=== PATIENT | male | born 1950 | race Caucasian/White ===

== ENCOUNTER 2018-05-12 15:42 | Outpatient (REF) | payer OTHER, SELFPAY ==
--- NOTE | 2018-05-12 15:00 | SKI_PTH ---
PATIENT: Fernie Washington LOC: N U#:[id number] AGE/SX: 67/M ROOM: RE05/12/[address]: Robert Guerrero DO : 1950 BED: DIS: 05/12/2018 SPEC #: [id number] RECD: 05/13/18 11:27 STATUS: ANA REQ #: [id number] HEATHER: 05/12/18 15:[address]: Robert Guerrero DEPT: Surgical Specimen RECD BY: Najma Luna ENTERED: 05/13/18 11:27 SP TYPE: SHAGGY ALMEIDA DR: Erick Hayes Tissues: 1 - SKIN BIOPSY(SHAVE/PUNCH) Procedures: SKIN LEVEL 4 Comments: [id number]
== END 2018-05-12 16:02 ==
LOC: LBN 15:42
PROVIDERS: PCP Internal Medicine; Visit Provider Otolaryngology Otolaryngology/Facial Plastic Surgery
DX: L57.0 Actinic keratosis (principal)
CPT/HCPCS: 88305

== ENCOUNTER 2018-06-09 06:20 | Day surgery (SDC) | payer OTHER, SELFPAY ==
[2018-06-09 06:30] VITALS: BP 140/87; PULSE 62; RESP 16; TEMP 35.3; O2SAT 97
[2018-06-09] MEDS: Lactated Ringers 1,000 ML 80 ML IV (07:10)
[2018-06-09] MEDS: Oxymetazolone 0.05% SPRAY 15 ML BTL (07:50)
--- NOTE | 2018-06-09 08:03 | LIPBX_PTH ---
PATIENT: Fernie Washington LOC: [facility] U#:[id number] AGE/SX: 67/M ROOM: RE06/09/[address]: Robert Guerrero DO : 1950 BED: DIS: 06/09/2018 SPEC #: [id number] RECD: 06/09/18 11:51 STATUS: ANA REQ #: [id number] HEATHER: 06/09/18 08:[address]: Robert Guerrero DEPT: Surgical Specimen RECD BY: Najma Luna ENTERED: 06/09/18 11:52 SP TYPE: LIPBX OTHR DR: Erick Hayes Tissues: 1 - LIP BIOPSY/RESECTION 2 - FROZEN SECTION EXAM 3 - FROZEN SECTION- EXTRA SPECIMEN Procedures: GROSS AND MICRO LEVEL 4 FROZEN SECTION EXTRA FROZEN SECTION EXAM Comments: [id number]
[2018-06-09] MEDS: Silver Nitrate Stick 1 EACH ×2 (08:48)
[2018-06-09 09:29] VITALS: BP 123/78; PULSE 50; RESP 18; TEMP 36; O2SAT 97
--- NOTE | 2018-06-09 12:22 | ROE_ITS ---
DATE OF PROCEDURE: June 09, 2018 PREOPERATIVE DIAGNOSIS: Actinic keratosis left lower lip junction of the moist and dry lip line. POSTOPERATIVE DIAGNOSIS: Same. PROCEDURE: 1. Excision shave technique .7 cm 2. Frozen section analysis 3. Thermal ablation 1.4 cm left lower lip SURGEON: Robert Guerrero D.O. ANESTHESIA: MAC sedation and 3.5 cc's of 1.5% lidocaine with 1:100,000 epinephrine. COMPLICATIONS: None. CONDITION: The patient tolerated the procedure well. SPECIMENS: Frozen section analysis negative for actinic keratosis cleared at the base. INDICATIONS FOR PROCEDURE: This is a pleasant 67-year-old male that presents with a non-healing lesi on of the lip. In-office has proven shown actinic keratosis; we had numerous lengthy discussions pre operatively. We were prepared to perform full-thickness excision and reconstruction. We wanted to r emain conservative if appropriate for both cosmetic outcome and to avoid any in-depth reconstruction if needed. We discussed this in detail again the preoperative morning with the patient's and e patient. We had agreed to proceed with shave excision, which was going to be substantially deeper than what we performed in the office, in attempt to clear this without full-thickness excision and re construction. We discussed the plan; they were in agreement. Consent was placed in the chart. PROCEDURE: The patient was brought back to the operating suite in stable condition, placed supine on the operating table and given IV sedation. 3.5 cc's of 1.5% lidocaine with 1:100,000 epinephrine wa s injected into the left lower lip. A derma blade was used to perform a .7 cm shave excision of the prior biopsy site with surrounding tissue associated. Colored sutures were placed for pathological a nalysis. This was sent for frozen section analysis. There was no evidence of actinic keratosis and the deep margin was cleared. We then proceed with thermal ablation of 1.4 cm of the left lower lip. I was happy that we were able to err on the side of conservative management. I updated the patient' s ; she was very glad of the news as well. The patient was stable to PACU.
== END 2018-06-09 09:58 | disposition home or self-care (01) ==
PROVIDERS: PCP Internal Medicine; Visit Provider Otolaryngology Otolaryngology/Facial Plastic Surgery
PROC: (CPT 11311; principal; 2018-06-09 07:30)
DX: L57.0 Actinic keratosis (principal)
CPT/HCPCS: 11311; 17000; 88305; 88331; 88332; J0690; J1885; J2250; J2405; J3010

== ENCOUNTER 2018-09-27 17:35 | Emergency (ER) | payer OTHER, SELFPAY ==
[2018-09-27 17:38] VITALS: BP 160/111; PULSE 82; RESP 14; TEMP 36.6; O2SAT 99
--- NOTE | 2018-09-27 18:07 | DI.CT_ITS ---
SYMPTOM/DIAGNOSIS: ABD PAIN ABDOMEN AND PELVIC CT: There are no prior comparison exams. Images were performed from the lung bases through the ischial tuberosities after IV and without benefit of oral contrast. The lung bases show mild dependent changes. There is a large hemangioma measuring 7.7 cm. at the dome of the liver. A few scattered liver cysts are also seen. The gallbladder is unremarkable. There is no biliary dilatation. The spleen, pancreas, adrenals and kidneys are unremarkable. The prostate is mildly enlarged and shows a central calcification. The bladder is unremarkable. The appendix appears normal. There is a moderate quantity of stool. No bowel dilatation or inflammatory changes are seen. No mass or adenopathy is identified. IMPRESSION: Large liver hemangioma. No acute abnormality is seen in the abdomen or pelvis.
--- NOTE | 2018-09-27 18:27 | W.ED.GENAD ---
Discharge Plan Disposition Patient Disposition: HOME Condition: Stable Discharge Details Chief Complaint: Abd Prob Clinical Impression: Abdominal pain, Constipation Primary Care Provider: Erick Hayes ED Provider: Karlie Martinez Home Meds and New Rx's Prescriptions: Continued Prilosec 10 MG susp,delayed release for recon 20 mg PO 3x week RF: 0 testosterone cypionate 200 mg/mL Kit 200 mg IM Q2W RF: 0 Discharge Instructions Instructions: Constipation (ED), Abdominal Pain (ED) Additional Instructions: Please return immediately to the emergency department if you develop any new or worsening symptoms or if you become otherwise concerned. It is extremely important that you see Dr. Hayes on Saturday as scheduled. It was a pleasure participating in your care today. Referrals: Erick Hayes MD [Primary Care Provider] - Discharge Data Discharge Date/Time-TO BE ENTERED AT DEPARTURE: 09/27/18 20:35 Medical Decision Making Fernie Washington is a 67-year-old man with history of GERD presenting to the emergency department with several weeks of worsening left lower quadrant pain and decreased frequency of bowel movements. On exam patient is very well and nontoxic appearing. Mild tenderness palpation of the left lower quadrant, no peritoneal signs. Concern for diverticulitis versus ileus/partial bowel obstruction versus other. Exam/history is not consistent with testicular etiology, acute aortic pathology, sepsis, ureteral stone. Plan for screening labs, CT abdomen pelvis, IV fluid hydration. Patient declines pain medication at this time. Will monitor and reassess. CT shows liver hemangioma, no acute process. Labs nondiagnostic. I discussed imaging lab results with the patient, including incidental findings. I suspect his symptoms are secondary to constipation, although I did recommend outpatient colonoscopy if symptoms persist. I had a lengthy discussion with the patient regarding home care, return to emergency department cautions, and importance of outpatient follow-up. Patient verbalized understanding the plan and is amenable. Medical Records Medical records reviewed: Yes I reviewed the patient's medical records. Imaging Data Radiologic Study: Attestation: I personally reviewed and interpreted this imaging study as follows: Radiologist's impression: ABDOMEN AND PELVIC CT: There are no prior comparison exams. Images were performed from the lung bases through the ischial tuberosities after IV and without benefit of oral contrast. The lung bases show mild dependent changes. There is a large hemangioma measuring 7.7 cm. at the dome of the liver. A few scattered liver cysts are also seen. The gallbladder is unremarkable. There is no biliary dilatation. The spleen, pancreas, adrenals and kidneys are unremarkable. The prostate is mildly enlarged and shows a central calcification. The bladder is unremarkable. The appendix appears normal. There is a moderate quantity of stool. No bowel dilatation or inflammatory changes are seen. No mass or adenopathy is identified. IMPRESSION: Large liver hemangioma. No acute abnormality is seen in the abdomen or pelvis. Lab Data Lab results reviewed: Yes I reviewed the patient's lab results. Laboratory Tests Range/Units 09/27/18 09/27/18 09/27/18 18:20 18:29 18:29 WBC (4.4-10.8) k/cumm 4.33 L RBC (4.50-6.00) m/cumm 5.28 Hgb (13.5-17.5) g/dL 16.2 Hct (40.0-50.0) % 47.4 MCV (80-95) fL 89.8 MCH (27.0-33.0) pg 30.7 MCHC (32.0-36.0) g/dL 34.2 RDW (11.8-14.1) % 12.8 Plt Count (130-400) x1000/uL 167 MPV (8.0-11.0) fL 10.1 Immature Gran % 0.0 Neutrophils % 54.8 Lymphocytes % 33.7 Monocytes % 9.9 Eosinophils % 1.4 Basophils % 0.2 Absolute Neutrophils (1.2-6.7) k/cumm 2.37 Absolute Lymphocytes (1.2-3.4) k/cumm 1.46 Absolute Monocytes (0.11-0.7) k/cumm 0.43 Absolute Eosinophils (0.0-0.7) k/cumm 0.06 Absolute Basophils (0.0-0.2) k/cumm 0.01 Sodium (136-145) mmol/L 142 Potassium (3.5-5.1) mmol/L 4.3 Chloride (98-107) mmol/L 103 Carbon Dioxide (21.0-32.0) mmol/L 32.8 H Anion Gap (3-11) mmol/L 6.2 BUN (7-18) mg/dL 17 Creatinine (0.70-1.30) mg/dL 1.14 Estimated GFR/1.73 m2 (mL/min/1.73m2) >= 60.00 Glucose (70-100) mg/dL 103 H Calcium (8.5-10.1) mg/dL 9.3 Total Bilirubin (0.2-1.0) mg/dL 0.6 AST (15-37) U/L 36 ALT (12-78) U/L 41 Alkaline Phosphatase (46-116) U/L 73 Total Protein (6.4-8.2) g/dL 7.6 Albumin (3.4-5.0) g/dL 4.1 Lipase (73-393) U/L 230 Urine Color (Yellow) Yellow Urine Clarity Clear Urine pH (5-8) 5.5 Ur Specific [place] (1.005-1.025) >= 1.030 H Urine Protein (Negative) mg/dL Negative Urine Ketones (Negative) mg/dL Trace H Urine Blood (Negative) Trace-intact H Urine Nitrite (Negative) Negative Urine Bilirubin (Negative) Small H Urine Urobilinogen (Up TO 0.2) EU/dL 0.2 Ur Leukocyte Esterase (Negative) Negative Urine RBC (0-2) 3-5 H Urine WBC (0-5) HPF Negative Ur Epithelial Cells (Negative) HPF Rare Urine Crystals (Negative) HPF Rare calcium oxalate Urine Bacteria (Negative) HPF Few Urine Casts (Negative) LPF Negative Urine Mucus (Negative) Negative Urine Other (Negative) Negative Ur Culture Indicated? No Urine Glucose (Negative) mg/dL Negative HPI General Mode of arrival: ambulatory. Date/Time Provider Initiated Documentation: 09/27/18 17:39. Limitations to Documentation: no limitations. Information obtained by: patient, family, RN notes reviewed and old records reviewed. HPI Narrative: Fernie Washington is a 67-year-old man with a history of GERD presenting to the emergency department with abdominal pain, change in bowel movements. Patient reports that approximately 2 months ago he was exposed to mouse feces. Approximately 1 month ago he developed watery diarrhea, and was concerned that he might have Giardia for which he took 1 week of antibiotics. Patient reports that diarrhea resolved, and then approximately 1 week later he developed left lower quadrant pain and decreased frequency of bowel movements and decreased ability to pass gas. Patient reports that he typically has very regular bowel movements, 2-3/day. He began having a decrease in frequency of bowel movements, left lower quadrant cramping abdominal pain that was somewhat resolved with passing gas or bowel movements. He took Bactrim and Flagyl for 1 week for this, with last dose of these medications being yesterday. Reports that he has had worsening of symptoms since taking these medications. He denies any other pain, fevers, vomiting, rash, shortness of breath, cough. He reports that he thinks he has had somewhat decreased p.o. intake, secondary to understanding that his frequency of bowel movements has decreased, but he has not had decreased appetite or nausea. No recent travel. No other recent illness. Has not had a history of similar symptoms in the past. Last colonoscopy 12 years ago. Had exploratory laparotomy during childhood. Related Data Home Medications Medication Instructions Recorded Confirmed Prilosec 20 mg PO 3x week packet 04/30/17 09/27/18 testosterone cypionate 200 mg IM Q2W 06/03/18 09/27/18 Allergies Allergy/AdvReac Type Severity Reaction Status Date / Time clindamycin AdvReac GI Bleeding Unverified 09/27/18 18:38 General Stated Complaint: Abd Prob CECELIA: 3 Review of Systems Review of Systems Constitutional: denies fevers Eyes: denies eye pain ENT: denies facial pain, dental pain, sore throat Cardiovascular: denies chest pain Respiratory: denies SOB, cough GI: reports abdominal pain, constipation, diarrhea now resolved, denies vomiting : denies flank pain MSK: denies back pain, neck pain, arthralgias, myalgias Skin: denies rash Neuro: denies headaches, numbness, weakness [facility] Social History Smoking/Tobacco Use Status: Never Exam Narrative Exam Narrative: Constitutional: well and [id number], pleasant, conversing normally HENT: head atraumatic, normocephalic normal inspection, mucous membranes moist Eyes: conjunctiva normal, sclera normal, pupils 3mm b/l Neck: no stridor, normal ROM, trachea midline Chest: normal inspection Resp: normal work of breathing, LCTAB Cardio: normal rate, normal rhythm, no murmur appreciated GI: abdomen soft, mild TTP mid lower abdominal and left lower quadrant, no rebound or guarding, negative McBurney's point tenderness, non-distended Back: normal inspection, no rash Skin: warm, dry, normal color, no rash Neuro: alert, not altered, grossly non-focal, normal tone Ext: no edema Psych: normal mood, normal affect, normal behavior Course Vital Signs Temperature 36.6 C 09/27/18 17:38 Pulse 82 09/27/18 17:38 Respiratory Rate 14 09/27/18 17:38 Blood Pressure 160/111 H 09/27/18 17:38 Pulse Oximetry 99 09/27/18 17:38 Temperature 36.6 C 09/27/18 17:38 Temperature Source Temporal Artery Scan 09/27/18 17:38 Pulse 82 09/27/18 17:38 Respiratory Rate 14 09/27/18 17:38 Respiratory Effort Non-Labored 09/27/18 17:41 Blood Pressure 160/111 H 09/27/18 17:38 Pulse Oximetry 99 09/27/18 17:38 Oxygen Delivery Method Room Air 09/27/18 17:38 Oxygen Flow Rate 0 09/27/18 17:38 Pain Level 2 09/27/18 17:38
[2018-09-27 18:34] LABS: Bilirubin Small (Negative); Blood Trace-intact (Negative); Clarity Clear; Glucose Negative (Negative); Ketones Trace mg/dL (Negative); Leukocyte Esterase Negative (Negative); Nitrite Negative (Negative); Specific Gravity >= 1.030 (1.005-1.025); Urobilinogen 0.2 EU/dL (Up TO 0.2); pH 5.5 (5-8)
[2018-09-27] MEDS: Normal Saline 1,000 ML 1000 ML IV (18:35)
--- NOTE | 2018-09-27 18:35 | ED.GENADUL_ITS ---
Discharge Plan Disposition Patient Disposition: HOME Condition: Stable Discharge Details Chief Complaint: Abd Prob Clinical Impression: Abdominal pain, Constipation Primary Care Provider: Erick Hayes ED Provider: Karlie Martinez Home Meds and New Rx's Prescriptions: Continued Prilosec 10 MG susp,delayed release for recon 20 mg PO 3x week RF: 0 testosterone cypionate 200 mg/mL Kit 200 mg IM Q2W RF: 0 Discharge Instructions Instructions: Constipation (ED), Abdominal Pain (ED) Additional Instructions: Please return immediately to the emergency department if you develop any new or worsening symptoms or if you become otherwise concerned. It is extremely important that you see Dr. Hayes on Saturday as scheduled. It was a pleasure participating in your care today. Referrals: Erick Hayes MD [Primary Care Provider] - Discharge Data Discharge Date/Time-TO BE ENTERED AT DEPARTURE: 09/27/18 20:35 Medical Decision Making Fernie Washington is a 67-year-old man with history of GERD presenting to the emergency department with several weeks of worsening left lower quadrant pain and decreased frequency of bowel movements. On exam patient is very well and nontoxic appearing. Mild tenderness palpation of the left lower quadrant, no peritoneal signs. Concern for diverticulitis versus ileus/partial bowel obstruction versus other. Exam/history is not consistent with testicular etiology, acute aortic pathology, sepsis, ureteral stone. Plan for screening labs, CT abdomen pelvis, IV fluid hydration. Patient declines pain medication at this time. Will monitor and reassess. CT shows liver hemangioma, no acute process. Labs nondiagnostic. I discussed imaging lab results with the patient, including incidental findings. I suspect his symptoms are secondary to constipation, although I did recommend outpatient colonoscopy if symptoms persist. I had a lengthy discussion with the patient regarding home care, return to emergency department cautions, and importance of outpatient follow-up. Patient verbalized understanding the plan and is am enable. Medical Records Medical records reviewed: Yes I reviewed the patient's medical records. Imaging Data Radiologic Study: Attestation: I personally reviewed and interpreted this imaging study as follows: Radiologist's impression: ABDOMEN AND PELVIC CT: There are no prior comparison exams. Images were performed from the lung bases through the ischial tuberosities after IV and without benefit of oral contrast. The lung bases show mild dependent changes. There is a large hemangioma measuring 7.7 cm. at the dome of the liver. A few scattered liver cysts are also seen. The gallbladder is unremarkable. There is no biliary dilatation. The spleen, pancreas, adrenals and kidneys are unremarkable. The prostate is mildly enlarged and shows a central calcification. The bladder is unremarkable. The appendix appears normal. There is a moderate quantity of stool. No bowel dilatation or inflammatory changes are seen. No mass or adenopathy is identified. IMPRESSION: Large liver hemangioma. No acute abnormality is seen in the abdomen or pelvis. Lab Data Lab results reviewed: Yes I reviewed the patient's lab results. Laboratory Tests Range/Units 09/27/18 09/27/18 09/27/18 18:20 18:29 18:29 WBC (4.4-10.8) k/cumm 4.33 L RBC (4.50-6.00) m/cumm 5.28 Hgb (13.5-17.5) g/dL 16.2 Hct (40.0-50.0) % 47.4 MCV (80-95) fL 89.8 MCH (27.0-33.0) pg 30.7 MCHC (32.0-36.0) g/dL 34.2 RDW (11.8-14.1) % 12.8 Plt Count (130-400) x1000/uL 167 MPV (8.0-11.0) fL 10.1 Immature Gran % 0.0 Neutrophils % 54.8 Lymphocytes % 33.7 Monocytes % 9.9 Eosinophils % 1.4 Basophils % 0.2 Absolute Neutrophils (1.2-6.7) k/cumm 2.37 Absolute Lymphocytes (1.2-3.4) k/cumm 1.46 Absolute Monocytes (0.11-0.7) k/cumm 0.43 Absolute Eosinophils (0.0-0.7) k/cumm 0.06 Absolute Basophils (0.0-0.2) k/cumm 0.01 Sodium (136-145) mmol/L 142 Potassium (3.5-5.1) mmol/L 4.3 Chloride (98-107) mmol/L 103 Carbon Dioxide (21.0-32.0) mmol/L 32.8 H Anion Gap (3-11) mmol/L 6.2 BUN (7-18) mg/dL 17 Creatinine (0.70-1.30) mg/dL 1.14 Estimated GFR/1.73 m2 (mL/min/1.73m2) >= 60.00 Glucose (70-100) mg/dL 103 H Calcium (8.5-10.1) mg/dL 9.3 Total Bilirubin (0.2-1.0) mg/dL 0.6 AST (15-37) U/L 36 ALT (12-78) U/L 41 Alkaline Phosphatase (46-116) U/L 73 Total Protein (6.4-8.2) g/dL 7.6 Albumin (3.4-5.0) g/dL 4.1 Lipase (73-393) U/L 230 Urine Color (Yellow) Yellow Urine Clarity Clear Urine pH (5-8) 5.5 Ur Specific [place] (1.005-1.025) >= 1.030 H Urine Protein (Negative) mg/dL Negative Urine Ketones (Negative) mg/dL Trace H Urine Blood (Negative) Trace-intact H Urine Nitrite (Negative) Negative Urine Bilirubin (Negative) Small H Urine Urobilinogen (Up TO 0.2) EU/dL 0.2 Ur Leukocyte Esterase (Negative) Negative Urine RBC (0-2) 3-5 H Urine WBC (0-5) HPF Negative Ur Epithelial Cells (Negative) HPF Rare Urine Crystals (Negative) HPF Rare calcium oxalate Urine Bacteria (Negative) HPF Few Urine Casts (Negative) LPF Negative Urine Mucus (Negative) Negative Urine Other (Negative) Negative Ur Culture Indicated? No Urine Glucose (Negative) mg/dL Negative HPI General Mode of arrival: ambulatory . Date/Time Provider Initiated Documentation: 09/27/18 17:39 . Limitations to Documentation: no limitations . Information obtained by: patient, family, RN notes reviewed and old records reviewed . HPI Narrative: Fernie Washington is a 67-year-old man with a history of GERD presenting to the emergency department with abdominal pain, change in bowel movements. Patient reports that approximately 2 months ago he was exposed to mouse feces. Approximately 1 month ago he developed watery diarrhea, and was concerned that he might have Giardia for which he took 1 week of antibiotics. Patient reports that diarrhea resolved, and then approximately 1 week later he developed left lower quadrant pain and decreased frequency of bowel movements and decreased ability to pass gas. Patient reports that he typically has very regular bowel movements, 2-3/day. He began having a decrease in frequency of bowel movements, left lower quadrant cramping abdominal pain that was somewhat resolved with passing gas or bowel movements. He took Bactrim and Flagyl for 1 week for this, with last dose of these medications being yesterday. Reports that he has had worsening of symptoms since taking these medications. He denies any other pain, fevers, vomiting, rash, shortness of breath, cough. He reports that he thinks he has had somewhat decreased p.o. intake, secondary to understanding that his frequency of bowel movements has decreased, but he has not had decreased appetite or nausea. No recent travel. No other recent illness. Has not had a history of similar symptoms in the past. Last colonoscopy 12 years ago. Had exploratory laparotomy during childhood. Related Data Home Medications Medication Instructions Recorded Confirmed Prilosec 20 mg PO 3x week packet 04/30/17 09/27/18 testosterone cypionate 200 mg IM Q2W 06/03/18 09/27/18 Allergies Allergy/AdvReac Type Severity Reaction Status Date / Time clindamycin AdvReac GI Bleeding Unverified 09/27/18 18:38 General Stated Complaint: Abd Prob CECELIA: 3 Review of Systems Review of Systems Constitutional: denies fevers Eyes: denies eye pain ENT: denies facial pain, dental pain, sore throat Cardiovascular: denies chest pain Respiratory: denies SOB, cough GI: reports abdominal pain, constipation, diarrhea now resolved, denies vomiting : denies flank pain MSK: denies back pain, neck pain, arthralgias, myalgias Skin: denies rash Neuro: denies headaches, numbness, weakness [facility] Social History Smoking/Tobacco Use Status: Never Exam Narrative Exam Narrative: Constitutional: well and [id number], pleasant, conversing normally HENT: head atraumatic, normocephalic normal inspection, mucous membranes moist Eyes: conjunctiva normal, sclera normal, pupils 3mm b/l Neck: no stridor, normal ROM, trachea midline Chest: normal inspection Resp: normal work of breathing, LCTAB Cardio: normal rate, normal rhythm, no murmur appreciated GI: abdomen soft, mild TTP mid lower abdominal and left lower quadrant, no rebound or guarding, negative McBurney's point tenderness, non-distended Back: normal inspection, no rash Skin: warm, dry, normal color, no rash Neuro: alert, not altered, grossly non-focal, normal tone Ext: no edema Psych: normal mood, normal affect, normal behavior Course Vital Signs Temperature 36.6 C 09/27/18 17:38 Pulse 82 09/27/18 17:38 Respiratory Rate 14 09/27/18 17:38 Blood Pressure 160/111 H 09/27/18 17:38 Pulse Oximetry 99 09/27/18 17:38 Temperature 36.6 C 09/27/18 17:38 Temperature Source Temporal Artery Scan 09/27/18 17:38 Pulse 82 09/27/18 17:38 Respiratory Rate 14 09/27/18 17:38 Respiratory Effort Non-Labored 09/27/18 17:41 Blood Pressure 160/111 H 09/27/18 17:38 Pulse Oximetry 99 09/27/18 17:38 Oxygen Delivery Method Room Air 09/27/18 17:38 Oxygen Flow Rate 0 09/27/18 17:38 Pain Level 2 09/27/18 17:38
[2018-09-27 18:39] LABS: Absolute Basophil Count 0.01 k/cumm (0.0-0.2); Absolute Eosinophil Count 0.06 k/cumm (0.0-0.7); Absolute Lymphocyte Count 1.46 k/cumm (1.2-3.4); Absolute Monocyte Count 0.43 k/cumm (0.11-0.7); Absolute Neutrophil Count 2.37 k/cumm (1.2-6.7); Basophils % 0.2; Eosinophils % 1.4; HCT 47.4 % (40.0-50.0); HGB 16.2 g/dL (13.5-17.5); Lymphocytes % 33.7; Mean Corp. HGB Concentration 34.2 g/dL (32.0-36.0); Mean Corpuscular Hemoglobin 30.7 pg (27.0-33.0); Mean Corpuscular Volume 89.8 fL (80-95); Mean Platelet Volume 10.1 fL (8.0-11.0); Monocytes % 9.9; Neutrophils % 54.8; Platelet Count 167 x1000/uL (130-400); RBC 5.28 m/cumm (4.50-6.00); RBC Distribution Width 12.8 % (11.8-14.1); White Blood Cell Count 4.33 k/cumm (4.4-10.8)
[2018-09-27 18:43] LABS: Epithelial Cells Rare HPF (Negative); WBC Negative HPF (0-5)
[2018-09-27 18:44] LABS: Bacteria Few HPF (Negative); C & S Indicated? No; Casts Negative LPF (Negative); Crystals Rare Calcium Oxalate HPF (Negative); Mucus Negative (Negative); Other Cells Negative (Negative)
[2018-09-27 18:50] LABS: ALT 41 U/L (12-78); AST 36 U/L (15-37); Albumin 4.1 g/dL (3.4-5.0); Alkaline Phosphatase 73 U/L (46-116); Anion Gap 6.2 mmol/L (3-11); BUN 17 mg/dL (7-18); Bilirubin, Total 0.6 mg/dL (0.2-1.0); CO2 32.8 mmol/L (21.0-32.0); CREATININE 1.14 mg/dL (0.70-1.30); Calcium 9.3 mg/dL (8.5-10.1); Chloride 103 mmol/L (98-107); Glucose 103 mg/dL (70-100); Lipase 230 U/L (73-393); Potassium 4.3 mmol/L (3.5-5.1); Sodium 142 mmol/L (136-145); Total Protein 7.6 g/dL (6.4-8.2)
[2018-09-27] MEDS: Omnipaque 350 MG/ML 100 ML BTL IJ (19:14)
--- NOTE | 2018-09-27 19:52 | DI.VRAD_ITS ---
EXAM: CT Abdomen and Pelvis With Contrast EXAM DATE/TIME: 09/27/2018 6:08 PM CLINICAL HISTORY: 67 years old, male; Pain; Abdominal pain; Generalized TECHNIQUE: Axial computed tomography images of the abdomen and pelvis with intravenous contrast. Coronal and sagittal reformatted images were created and reviewed. COMPARISON: No relevant prior studies available. FINDINGS: Lower thorax: Bibasilar dependent atelectasis. ABDOMEN: Liver: Large hemangioma in the right lobe of the liver measuring 7.7 m. Multiple small probable hepatic cysts. Gallbladder and bile ducts: Normal. No calcified stones. No ductal dilation. Pancreas: Normal. No ductal dilation. Spleen: Normal. No splenomegaly. Adrenals: Normal. No mass. Kidneys and ureters: Normal. No hydronephrosis. Stomach and bowel: Normal. No obstruction. No mucosal thickening. Appendix: Normal appendix. PELVIS: Bladder: Unremarkable as visualized. Reproductive: Unremarkable as visualized. ABDOMEN and PELVIS: Intraperitoneal space: Normal. No free air. No significant fluid collection. Bones/joints: No acute fracture. No dislocation. Soft tissues: Unremarkable. Vasculature: Normal. No abdominal aortic aneurysm. Lymph nodes: Normal. No enlarged lymph nodes. IMPRESSION: No acute findings. Dictated and Authenticated by: Skip Alvarez MD. Ordering:AARON Ziegler MD
== END 2018-09-27 20:35 | disposition home or self-care (01) ==
PROVIDERS: Emergency Provider Student in an Organized Health Care Education/Training Program; PCP Internal Medicine
DX: R10.32 Left lower quadrant pain (principal); K59.00 Constipation, unspecified
CPT/HCPCS: 36415; 80053; 83690; 96360; 96361; 99285; 74177; 81003; 81015; 85025; 99284; J3490

== ENCOUNTER 2018-10-16 08:54 | Outpatient (REF) | payer OTHER, SELFPAY | END 2018-10-16 09:14 | LOC: NCHCN 08:54 | PROVIDERS: PCP Internal Medicine; Referring Provider Internal Medicine; Visit Provider General Practice | DX: R19.7 Diarrhea, unspecified (principal) | CPT/HCPCS: 87329; 87177 ==

== ENCOUNTER 2018-10-20 13:37 | Outpatient (CLI) | payer OTHER, SELFPAY ==
[2018-10-22 12:25] LABS: Tissue Transglutaminase Ab IgA <1.2 U/mL; Tissue Transglutaminase Ab IgG <1.2 U/mL
== END 2018-10-20 13:57 ==
PROVIDERS: PCP Internal Medicine; Visit Provider General Practice
DX: R19.7 Diarrhea, unspecified (principal)
CPT/HCPCS: 36415; 83516

== ENCOUNTER 2018-12-02 20:31 | Outpatient (REF) | payer OTHER, SELFPAY | END 2018-12-02 20:51 | LOC: NCHCN 20:31 | PROVIDERS: PCP Internal Medicine; Visit Provider Internal Medicine | DX: R19.7 Diarrhea, unspecified (principal) | CPT/HCPCS: 87329; 82710; 83630; 87177; 87324 ==

== ENCOUNTER 2018-12-04 12:24 | Outpatient (REF) | payer OTHER, SELFPAY ==
[2018-12-05 10:38] LABS: Campylobacter PCR SEE COMMENTS; Salmonella PCR SEE COMMENTS; Shiga Toxin PCR SEE COMMENTS; Shigella/Enteroinvasive Ecoli SEE COMMENTS
== END 2018-12-04 12:44 ==
LOC: NCHCO 12:24
PROVIDERS: PCP Internal Medicine; Referring Provider General Practice; Visit Provider Internal Medicine
DX: R19.7 Diarrhea, unspecified (principal)
CPT/HCPCS: 87505

== ENCOUNTER 2019-01-20 06:12 | Day surgery (SDC) | payer OTHER, SELFPAY ==
--- NOTE | 2019-01-20 06:26 | W.COLOREPORT ---
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 He also is due for a screening colonoscopy. Risks, benefits and complications have been reviewed. Complications include but are not limited to bleeding, pain, perforation, missed small lesion/polyp, sore throat, aspiration and adverse reaction to the medications. Questions were entertained and answered to their satisfaction and they wished to proceed. No guarantees were given or implied. Prep: Miralax/Dulcolax Procedure Start Time: :28 Procedure End Time: 08:37 Retraction Time: 39 minutes Findings: Normal appearing colon and terminal ileum. One pedunculated polyp and 4 sessile polyps Procedure Description: After informed consent was obtained the patient was taken to the procedure room and placed in a left decubitous position. Monitors were applied and a time out was done. The patients name, date of , procedure, allergies to medications and metal in their body was reviewed. The patient was then sedated. Once sedated and comfortable a rectal exam was done. External exam was normal. Internal exam revealed a normal sphincter tone and no palpable masses. The prostate felt smooth. The scope was then introduced and retro-flexed. No internal hemorrhoids were identified. There were no polyps or masses noted. The scope was then advanced to the cecum with some difficulty due to a very floppy and tortuous colon. The TI and appendiceal orifice were identified. The prep was adequate. There was liquid stool throughout but I was able to suction it out. The scope was then slowly retracted over 39 minutes back into the rectum. Polyps were removed with cold forceps in the descending, transverse and sigmoid colon. Random bx were done in the terminal ileum, ascending, transverse, descending, sigmoid and rectum to rule out microscopic colitis. The scope was removed and the patient was woken up and taken back to Same day surgery in stable condition. The patient tolerated the procedure well and there were no immediate complications. Follow up: The patient should follow up in 3-5 years unless they develop changes in bowel habits or other new gastrointestinal complaints.
--- NOTE | 2019-01-20 06:28 | W.PM.DSUDISC ---
Discharge Plan Disposition Patient Disposition: HOME Condition: Good Discharge Details Reason For Visit: Colonoscopy Attending Provider: Gloria Rees Primary Care Provider: Erick Hayes Home Meds and New Rx's Prescriptions: Continued Prilosec 10 MG susp,delayed release for recon 20 mg PO 3x week RF: 0 testosterone cypionate 200 mg/mL Kit 200 mg IM Q2W RF: 0 Discontinued polyethylene glycol 3350 [Miralax] 17 gram Powder In Packet RF: 0 bisacodyl [Dulcolax (bisacodyl)] 5 mg Tablet,Delayed Release (Dr/Ec) RF: 0 Discharge Instructions Instructions: Colonoscopy (DC), Colorectal Polyps (DC) Additional Instructions: Findings: 5 polyps otherwise normal appearing colon and terminal ileum Follow up: 3-5 years Please call if you develop: fevers >101.5 Nausea or Vomiting Abdominal pain that is not transient DAY SURGERY UNIT POST COLONOSCOPY INSTRUCTIONS 1. Because there will be medication in your system for the next 24 hours, you may feel a little sleepy. Your coordination will be affected. Therefore: a. Do not drive or operate dangerous equipment for 24 hours. b. Do not drink alcohol beverages for 24 hours (not even beer). c. Plan to go home and rest for the day. 2. Generally there are no restrictions on your activity after a day or so has gone by, but you may feel a bit fatigued for a few days. 3 After you arrive home you may have a light meal and return to a normal diet as you can tolerate it without feeling sick to your stomach. 4. After surgery, you may feel pain or discomfort. This should be only transient, but if it persists please contact your doctor. 5. If there are any questions regarding the findings of your procedure, please feel free to contact your doctor. 6. If you are unable to contact your doctor with a problem, contact the hospital at [phone]. 7. Continue all your regular medications unless directed otherwise. I understand the above instructions and have no questions. Signature of Patient or Responsible Adult Escort Date/Time Name of Responsible Adult Escort Signature of Nurse Date/Time Activity:: Activity as Tolerated Diet:: As Tolerated Discharge Orders Discharge Orders: Discharge Order (Routine); Ordered 01/20/19 Ordered By: Gloria Rees DS: Diagnosis Discharge Diagnosis (1) S/P colonoscopy: Status: Acute (2) Colorectal polyps: Status: Acute
--- NOTE | 2019-01-20 06:29 | W.PM.HP.N ---
Date of service: 01/20/19 Time of Service: 06:29 Assessment and Plan (1) Encounter for colorectal cancer screening: Current visit: Yes Status: Acute A\\ Due for screening colonoscopy. Last colonoscopy was 12 years ago and was normal P\\ Colonoscopy under sedation Risks, benefits and complications have been reviewed. Complications include but are not limited to bleeding, perforation, pain, missed lesion or polyp, sore throat, aspiration, and adverse reaction to the medications. Questions were entertained and answered to the patient's satisfaction and they wish to proceed. No guarantees were given or implied. (2) Chronic diarrhea: Current visit: Yes Status: Acute A\\ I suspect that he has a mild colitis post viral gastroenteritis. P\\ I recommended random biopsies of the large bowel if the colon is otherwise normal. Dr. Washington would rather not have the biopsies done. We discussed that I would not treat him with prednisone or entocort unless I had biopsy proven Colitis. 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 He though he had developed Giardia and took a course of Flagyl without effect. He then thought that maybe he had diverticulitis and took a 7 day course of antibiotics for that without improvment in his symptoms. He then developed constipation and was seen in the ER. CT scan was unremarkable for any GI pathology. They did find an 8 cm hemangioma in his liver. He now has looses stools, some lower abdom inal pain and his weight has stabilized. Some of the pain resolves after having a BM. The pain is not bad enough to cause him to have to take anything for it. He eats a predominantly vegan diet. He doesn't smoke or drink. He has no family history of IBD or Colon Cancer. he has no Cardiac history. His last Colonoscopy was [address] Ahsan Valadez and it was normal. There have been no changes in his health since I saw him in the office. [facility] Medical History GERD (gastroesophageal reflux disease) (Chronic) Hypogonadism in male (Chronic) H/O actinic keratosis (Resolved) Sensorineural hearing loss of both ears (Chronic) Surgical History S/P colonoscopy (Acute ~01/20/19) H/O local excision of skin lesion (Acute) Social History Smoking/Tobacco Use Status: Never Alcohol Intake: never Drug use: Never Do you feel safe in your relationship?: Yes Meds Home Medications Medication Instructions Recorded Confirmed Type Prilosec 20 mg PO 3x week packet 04/30/17 12/19/18 History testosterone cypionate 200 mg IM Q2W 06/03/18 12/19/18 History Allergies Allergy/AdvReac Type Severity Reaction Status Date / Time clindamycin AdvReac C.Diff Unverified 01/20/19 06:26 Exam Resp Effort & Inspection: normal respiratory effort Auscultation: clear to auscultation bilaterally Cardio Rate: regular rate Rhythm: regular rhythm
[2019-01-20 06:36] VITALS: BP 148/90; PULSE 55; RESP 14; TEMP 35; O2SAT 99
[2019-01-20] MEDS: Lactated Ringers 1,000 ML 80 ML IV (06:39)
--- NOTE | 2019-01-20 07:34 | BOWEL_PTH ---
PATIENT: Fernie Washington LOC: [facility] U#:[id number] AGE/SX: 68/M ROOM: RE01/20/[address]: Gloria Rees MD : 1950 BED: DIS: 01/20/2019 SPEC #: [id number] RECD: 01/20/19 12:48 STATUS: ANA RE #: [id number] HEATHER: 01/20/19 07:[address]: Gloria Rees DEPT: Surgical Specimen RECD BY: Najma Luna ENTERED: 01/20/19 12:51 SP TYPE: Bowel OTHR DR: Erick Hayes Tissues: 1 - BIOPSY BOWEL 2 - BIOPSY BOWEL 3 - BIOPSY BOWEL 4 - BIOPSY BOWEL 5 - BIOPSY BOWEL 6 - BIOPSY BOWEL 7 - BIOPSY BOWEL 8 - BIOPSY BOWEL 9 - BIOPSY BOWEL 10 - BIOPSY BOWEL Procedures: GROSS AND MICRO LEVEL 4 Comments: [id number]
[2019-01-20 09:14] VITALS: BP 116/75; PULSE 47; RESP 14; TEMP 36.3; O2SAT 97
== END 2019-01-20 10:55 | disposition home or self-care (01) ==
PROVIDERS: PCP Internal Medicine; Visit Provider Surgery
PROC: 0DJD8ZZ Inspection of Lower Intestinal Tract, Via Natural or Artificial Opening Endoscopic (ICD-10-PCS; CPT 45378; principal; 2019-01-20 07:30)
DX: Z12.11 Encounter for screening for malignant neoplasm of colon (principal); D12.4 Benign neoplasm of descending colon; D12.5 Benign neoplasm of sigmoid colon; D12.3 Benign neoplasm of transverse colon; K52.9 Noninfective gastroenteritis and colitis, unspecified; K63.5 Polyp of colon; Q43.8 Other specified congenital malformations of intestine
CPT/HCPCS: 45380; 88305; NC

== ENCOUNTER 2019-02-16 12:15 | Outpatient (CLI) | payer OTHER, SELFPAY ==
[2019-02-16 21:22] LABS: T3,Free 3.4 pg/ml (2.8-5.3)
== END 2019-02-16 12:35 ==
PROVIDERS: PCP Internal Medicine; Visit Provider Internal Medicine
DX: R63.4 Abnormal weight loss (principal); R61 Generalized hyperhidrosis
CPT/HCPCS: 36415; 84439; 84443; 84481

== ENCOUNTER 2019-03-27 10:13 | Outpatient (CLI) | payer OTHER, SELFPAY ==
[2019-03-27 11:31] LABS: C-Reactive Protein 0.12 mg/dL (0.0-0.3)
[2019-03-30 13:06] LABS: IgA 224 mg/dL (85-499)
== END 2019-03-27 10:33 ==
PROVIDERS: PCP Internal Medicine; Visit Provider Internal Medicine
DX: R63.4 Abnormal weight loss (principal)
CPT/HCPCS: 36415; 82784; 86140

== ENCOUNTER 2019-04-01 14:13 | Outpatient (REF) | payer OTHER, SELFPAY ==
[2019-04-03 22:12] LABS: Calprotectin 88.6 mcg/g
== END 2019-04-01 14:33 ==
LOC: LBN 14:13
PROVIDERS: PCP Internal Medicine; Visit Provider Internal Medicine
DX: R63.4 Abnormal weight loss (principal)
CPT/HCPCS: 83993

== ENCOUNTER 2020-12-11 17:14 | Outpatient (REF) | payer OTHER, SELFPAY ==
[2020-12-11 10:34] LABS: Source Nasal/Nares
[2020-12-11 11:33] LABS: COVID-19 PCR Negative (Negative)
== END 2020-12-11 17:15 | disposition home or self-care (01) ==
LOC: LBO 17:14
PROVIDERS: Family Medicine; PCP Internal Medicine; Visit Provider Nurse Practitioner Family
DX: Z20.822 Contact with and (suspected) exposure to COVID-19 (principal)
CPT/HCPCS: 87635

== ENCOUNTER 2021-08-21 16:38 | Outpatient (CLI) | payer OTHER, SELFPAY ==
[2021-08-21 17:22] LABS: Calculated LDL 107 mg/dL (<100); Cholesterol 201 mg/dL (<200); HDL Cholesterol 46 mg/dL (40-60); Triglyceride 244 mg/dL (<150)
[2021-08-25 09:40] LABS: Testosterone, Free 5.02 ng/dL (3.47-13.0); Testosterone, Total 279 ng/dL (240-950)
== END 2021-08-21 16:39 | disposition home or self-care (01) ==
LOC: LBO 16:44
PROVIDERS: PCP Internal Medicine; Visit Provider Internal Medicine
DX: E29.1 Testicular hypofunction (principal); Z13.220 Encounter for screening for lipoid disorders
CPT/HCPCS: 36415; 80061; 84402; 84403

== ENCOUNTER 2021-09-25 01:51 | Outpatient (CLI) | payer OTHER, SELFPAY ==
[2021-09-25 16:44] LABS: Abs Immature Grans 0.01 10^3/uL (0.0-0.06); Absolute Basophil Count 0.02 10^3/uL (0.0-0.2); Absolute Eosinophil Count 0.07 10^3/uL (0.0-0.7); Absolute Lymphocyte Count 1.78 10^3/uL (1.2-3.4); Absolute Monocyte Count 0.58 10^3/uL (0.1-0.8); Absolute Neutrophil Count 2.74 10^3/uL (1.2-6.7); Basophils % 0.4; Eosinophils % 1.3; HCT 46.6 % (40.0-50.0); HGB 14.4 g/dL (13.5-17.5); Immature Grans % 0.2; Lymphocytes % 34.2; MCH 27.8 pg (27.0-33.0); MCHC 30.9 % (32.0-36.0); MPV 9.9 fL (8.0-11.0); Monocytes % 11.2; Neutrophils % 52.7; Nucleated RBC 0 %; Platelet Count 197 10^3/uL (130-400); RBC 5.18 10^6/uL (4.36-5.78); RDW-SD 45.8 fL
[2021-09-25 17:03] LABS: INR 0.9 (0.9-1.1); Prothrombin Time 9.5 sec (9.3-11.0)
[2021-09-25 18:31] LABS: CREATININE 0.9 mg/dL (0.70-1.30)
[2021-09-25 18:35] LABS: Iron 36 ug/dL (65-175); Total Iron Binding Capacity 409 ug/dL (250-450); Transferrin Sat 9 % (20-55)
[2021-09-25 18:44] LABS: Ferritin 8 ng/mL (26-388); TSH 1.45 uIU/mL (0.36-3.74)
[2021-09-25 19:18] LABS: Vitamin D 25 Total 25.4 ng/mL (30-100)
[2021-09-26 17:39] LABS: PSA, Screening 2.2 ng/mL (0.0-4.5)
[2021-09-28 12:13] LABS: Free Retinol (Vitamin A) 55.7 mcg/dL (32.5-78.0)
== END 2021-09-25 01:52 | disposition home or self-care (01) ==
LOC: LBO 01:53
PROVIDERS: PCP Internal Medicine; Visit Provider Internal Medicine
DX: R63.4 Abnormal weight loss (principal); R19.4 Change in bowel habit; Z12.5 Encounter for screening for malignant neoplasm of prostate
CPT/HCPCS: 36415; 82306; 84153; 82565; 82728; 83540; 83550; 84443; 84446; 84590; 85025; 85610

== ENCOUNTER 2021-10-04 00:10 | Outpatient (CLI) | payer OTHER, SELFPAY ==
--- NOTE | 2021-10-04 | DI.CT_ITS ---
Exam(s) CT ABDOMEN PELVIS W EXAM: CT ABDOMEN PELVIS W CLINICAL HISTORY: UNINTENTIONAL WT LOSS,R63.4. TECHNIQUE: Imaging Protocol: Axial computed tomography images with coronal and sagittal reformatted images were created and reviewed CONTRAST MATERIAL: Intravenous: Omnipaque 100cc Oral: Yes COMPARISON: CT CT ABDOMEN PELVIS W from 09/27/2018 FINDINGS: VISUALIZED LUNG BASES: Atelectasis in the posterior basal segment of the right lower lobe is unchange d from 2019. There are no pleural effusions. ABDOMEN: There is no ascites. LIVER: Again noted is a lesion in the superior aspect of the right hepatic lobe which measures 6.8 cm AP by 6 cm wide the by 5 cm craniocaudal. This has appearance of a probable benign hemangioma and h as not increased in size from September 2018 (3 years ago). Also unchanged in the liver are a few torri ign-appearing cysts, the largest measuring 1.7 x 1.4 cm, also unchanged. There are no new ominous fo cira hepatic lesions identified. No dilatation of intrahepatic ducts. GALLBLADDER/BILIARY: No obvious gallbladder pathology. CBD is not dilated. PANCREAS: On the sagittal images (series 7/image 54) there is a small well-defined hypodensity in the inferior aspect of the body of the pancreas measuring 5 x 5 millimeters, either cyst or small intra pancreatic cystic neoplasm. No other focal pancreatic findings nor dilatation of the pancreatic duct . SPLEEN: Spleen is not enlarged. No obvious intrasplenic lesions. Splenic and portal veins are paten t. ADRENALS: There are no significant adrenal masses. KIDNEYS:No cysts evident. No solid renal masses. No calculi nor hydronephrosis.. ABDOMINAL AORTA: Abdominal aorta is not enlarged. LYMPH NODES:There is no retroperitoneal nor paraaortic adenopathy. ABDOMINAL WALL: No evidence of significant anterior abdominal wall hernia. However, there is unchang ed density in the right inguinal canal. This, however, does not have the appearance of an obvious chad wel loops therein. It is unchanged from 3 years ago. GI: There is no evidence of bowel obstruction, free air, nor abscess. There appears to be some thickening of the stomach wall at the GE junction, possibly significant. No regional adenopathy evident in this region. PELVIS: GI: No evidence of appendicitis.Abundant fecal material is noted throughout the colon. There is no o bvious colitis-type pattern and there is no significant diverticular disease. LYMPH NODES: There is no intrapelvic nor inguinal adenopathy. REPRODUCTIVE: Prostate size is mildly enlarged but unchanged. Seminal vesicles unremarkable. There is no obturator adenopathy. URINARY BLADDER: No calculi nor obvious masses evident OSSEOUS: No significant lytic nor blastic osseous lesions. There is partial ankylosis of the sacroiliac joints noted, unchanged. No compression fractures. IMPRESSION: 1. Compared to the prior CT scan of September 2018 there is a prominent hemangioma in the right hepati c lobe with measurements as above and appearing unchanged in size from the prior CT study. In additi on, there are few small benign-appearing cysts in the liver which are also unchanged. There are no n ew primary nor metastatic appearing lesions in the liver, given the history here. 2. Slight thickening of the gastric side of the GE junction noted, possibly significant and direct vi sualization-endoscopy is recommended to rule out neoplasm at this level. 3. 5 millimeter hypodensity in the inferior aspect of the body of the pancreas, best seen on the sagi ttal images. This may be pancreatic cyst or small intra pancreatic cystic neoplasm. Recommend follo w-up MRI. 4. There is no adenopathy nor ascites evident. No splenomegaly. RADIATION DOSE DELIVERED: 1,002.63mGy.cm Total DLP DATA REPOSITORY: All CT scans at this facility are submitted to the National Radiology Data Registry (NRDR) Dose Index Registry (DIR) with the [employer] (A[employer]). RADIATION OPTIMIZATION: All CT scans at this facility use at least one of these dose optimization te chniques: automated exposure control; mA and/or kV adjustment per patient size (includes targeted exa ms where dose is matched to clinical indication); or iterative reconstruction.
[2021-10-04] MEDS: Omnipaque 350 MG/ML 50 ML BTL IJ (07:39)
[2021-10-04] MEDS: Breeza Beverage 473 ML BTL PO ×2 (07:40→07:41)
[2021-10-04] MEDS: Omnipaque 350 MG/ML 100 ML BTL IJ (08:50)
[2021-10-04] MEDS: Normal Saline Flush 10 ML SYR IVP (08:51)
== END 2021-10-04 00:30 ==
PROVIDERS: PCP Internal Medicine; Visit Provider Internal Medicine
DX: R63.4 Abnormal weight loss (principal); K76.89 Other specified diseases of liver; K86.89 Other specified diseases of pancreas; N40.0 Benign prostatic hyperplasia without lower urinary tract symptoms; K31.89 Other diseases of stomach and duodenum
CPT/HCPCS: 74177; J3490; Q9967

== ENCOUNTER 2021-12-18 10:57 | Outpatient (CLI) | payer OTHER, SELFPAY ==
[2021-12-18 16:22] LABS: Abs Immature Grans 0.01 10^3/uL (0.0-0.06); Absolute Basophil Count 0.04 10^3/uL (0.0-0.2); Absolute Eosinophil Count 0.06 10^3/uL (0.0-0.7); Absolute Lymphocyte Count 1.54 10^3/uL (1.2-3.4); Absolute Monocyte Count 0.57 10^3/uL (0.1-0.8); Absolute Neutrophil Count 3.17 10^3/uL (1.2-6.7); Basophils % 0.7; Eosinophils % 1.1; HCT 45.3 % (40.0-50.0); HGB 14.2 g/dL (13.5-17.5); Immature Grans % 0.2; Lymphocytes % 28.6; MCH 28.1 pg (27.0-33.0); MCHC 31.3 % (32.0-36.0); MCV 89.7 fL (80-95); MPV 10.1 fL (8.0-11.0); Monocytes % 10.6; Neutrophils % 58.8; Platelet Count 194 10^3/uL (130-400); RBC 5.05 10^6/uL (4.36-5.78); RDW 14.9 % (11.8-14.1); RDW-SD 49.4 fL; WBC 5.39 10^3/uL (4.4-10.8)
[2021-12-18 18:04] LABS: Iron 63 ug/dL (65-175); Total Iron Binding Capacity 365 ug/dL (250-450)
[2021-12-18 18:16] LABS: Ferritin 17 ng/mL (26-388)
== END 2021-12-18 10:58 | disposition home or self-care (01) ==
LOC: LBO 12-19 10:59
PROVIDERS: PCP Internal Medicine; Visit Provider General Practice
DX: E61.1 Iron deficiency (principal)
CPT/HCPCS: 36415; 82728; 83540; 83550; 85025

== ENCOUNTER 2022-06-05 15:55 | Outpatient (REF) | payer OTHER, SELFPAY ==
[2022-06-05 19:14] LABS: HCT 44.8 % (40.0-50.0); HGB 14.7 g/dL (13.5-17.5); MCH 29.3 pg (27.0-33.0); MCHC 32.8 % (32.0-36.0); MCV 89 fL (80-95); MPV 10.7 fL (8.0-11.0); Platelet Count 246 10^3/uL (130-400); RBC 5.02 10^6/uL (4.36-5.78); RDW 13.2 % (11.8-14.1); RDW-SD 43.6 fL; WBC 4.92 10^3/uL (4.4-10.8)
[2022-06-05 19:41] LABS: Anion Gap 4.1 mmol/L (3-11); BUN 24 mg/dL (7-18); CO2 32.9 mmol/L (21.0-32.0); CREATININE 0.9 mg/dL (0.70-1.30); Calcium 8.9 mg/dL (8.5-10.1); Chloride 101 mmol/L (98-107); Estimated GFR 92.45 (mL/min/1.73m2); Glucose 104 mg/dL (74-106); Magnesium 2.2 mg/dL (1.8-2.4); NT-proBNP 84 pg/mL (<300); Potassium 4.6 mmol/L (3.5-5.1); Sodium 138 mmol/L (136-145)
== END 2022-06-05 15:56 | disposition home or self-care (01) ==
LOC: NCHCN 15:55
PROVIDERS: PCP Internal Medicine; Visit Provider Internal Medicine
DX: R06.09 Other forms of dyspnea (principal); I49.3 Ventricular premature depolarization
CPT/HCPCS: 80048; 85027; 83735; 83880

== ENCOUNTER → 2022-06-05 16:44 | Outpatient (CLI) | payer OTHER, SELFPAY ==
--- NOTE | 2022-06-05 16:00 | DI.RAD_ITS ---
Exam(s) XR CHEST 2V PA LATERAL EXAM: XR CHEST 2V PA LATERAL CLINICAL HISTORY: EXERTIONAL DYSPNEA, R06.09 TECHNIQUE: 2D digital imaging was performed of the chest. Two images were obtained. PA and lateral views were obtained. COMPARISON: CT CT ABDOMEN PELVIS W from 10/04/2021 FINDINGS: MEDIASTINUM: Normal. HEART: Normal. PULMONARY VASCULATURE: Normal. LUNGS: There is linear scarring in the right lung base just above the hemidiaphragm. It follows the c urve of the diaphragm. This has a similar appearance to the CT scan of the abdomen and pelvis from 10/04/2021. No evidence of pneumoperitoneum is seen. No focal consolidating infiltrates are present. PLEURAL SPACE: No pleural effusion or pneumothorax. BONE:Within normal limits for the patient's age. OTHER FINDINGS:Normal. IMPRESSION: 1. No acute pulmonary findings. 2. Findings were discussed with Dr. Hayes at 4:39 p.m. on 06/05/2022. DATA REPOSITORY: RADIATION DOSE DELIVERED:
== END ==
PROVIDERS: PCP Internal Medicine; Visit Provider Internal Medicine
DX: R06.09 Other forms of dyspnea (principal)
CPT/HCPCS: 71046

== ENCOUNTER 2022-06-07 12:55 | Outpatient (CLI) | payer OTHER, SELFPAY ==
[2022-06-07] MEDS: Albuterol HFA 18 GM 200 PUFF INH IH (16:30)
[2022-06-07] MEDS: Inhaler, Assist Device 1 EACH MC (16:31)
--- NOTE | 2022-06-15 09:40 | W.PFT ---
Date of service: 06/07/22 Time of Service: 15:02 Pulmonary Function Test Result Requesting Provider Raf Hayes Indications: Dyspnea Interpretation Spirometry: There is no airflow limitation. There is no significant bronchodilator response. Lung Volumes: Lung volumes are normal. Diffusion Capacity: Diffusion is normal. Airway Pressure: Airways resistance is normal. Impression Normal pulmonary function test Clinical Correlation therefore is recommended.
== END 2022-06-07 12:56 | disposition home or self-care (01) ==
PROVIDERS: PCP Internal Medicine; Visit Provider Internal Medicine
DX: R06.09 Other forms of dyspnea (principal)
CPT/HCPCS: 94060; 94726; 94729

== ENCOUNTER → 2022-06-12 02:26 | Outpatient (CLI) | payer OTHER, SELFPAY ==
--- NOTE | 2022-06-12 09:00 | ETT_ITS ---
APPROVED REPORT Exam: Exercise Treadmill Patient Location: Out-Patient Room/Bed: Stress Nurse: Tracie Santos RN Ordering Provider:VERONA OCAMPO, Contact Number: [phone] BMI: 24.34 Baseline Rhythm: Sinus Rhythm, PVC's Comment: T wave inversion, aVL Indications: Exertional Dyspnea, Frequent Premature Ventricular Beats Medical History Medical History: GERD, Hearing loss Cardiac Medications: Prilosec Allergies: Clindamycin Cardiac Risk Factors: None Previous Cardiac Procedures: None Pretest Chest Pain Characteristics: None Exercise History: Indeterminate Physical Disabilities: None Lung Sounds: CLear Heart Sounds: Regular Stress Test Details Test: Exercise stress testing was performed using a Luciano protocol. Rest Stress HR Resting HR Supine: 72 bpm Max Heart Rate (APMHR): 151 bpm Resting HR Standin bpm Target HR (85% APMHR): 128 bpm Max HR Achieved: 148 bpm % of APMHR: 98 Recovery HR: 81 bpm HR response to stress: Normal HR response to stress BP Resting BP Supine: 162/82 mmHg Resting BP Standin/90 mmHg Max BP: 192/82 mmHg Recovery BP: 140/80 mmHg BP response to stress: Normal blood pressure response to stress. ECG Resting ECG: Sinus Rhythm Ectopy: Frequent PVC's Comment: T wave inversion, aVL Stress ECG: Sinus Tachycardia ST Change: No significant ST segment changes noted Arrhythmia: None Recovery ECG: Sinus Rhythm Recovery ST Change: No significant ST segment changes noted Recovery Arrhythmia: PVC's, PAC's Clinical Reason for Termination: Fatigue Stress Symptoms: General Fatigue Exercise duration: 9 min47 sec Highest Stage Reached: Stage 4: 4.2 mph at 16% grade. Exercise capacity: 11.46 METs Angina Score: None Villar Treadmill Score: 9 Rate Pressure Product: 16969 Stress ECG Conclusion 1. Resting electrocardiogram was within normal limits 2. Patient exercised on the Luciano protocol and completed a workload of 11.46 METS, stopping due to fa tigue 3. Normal heart rate and blood pressure response to exercise. The patient achieved 98% predicted hea rt rate for age 4. There was no electrocardiographic evidence of myocardial ischemia 5. PVCs were noted at rest. With exercise PVCs resolved. They recurred in recovery Villar Treadmill Score is 9 which is Low risk. Stress Test Summary STAGE Time (mins) Speed (mph) Grade (%) HR BP SpO2 SYMPTOMS METS Supine 72 162/82 Standing 81 1440/90 97% 1 3 1.7 10 112 158/84 92% 4.5 2 6 2.5 12 132 162/70 94% 7 3 9 3.4 14 140 180/80 95% 10 4 12 4.2 16 146 13 1 min recovery 129 192/82 98% 3 min recovery 88 180/94 97% 6 min recovery 81 140/80
== END ==
PROVIDERS: PCP Internal Medicine; Visit Provider Internal Medicine
DX: I49.3 Ventricular premature depolarization (principal); R06.09 Other forms of dyspnea
CPT/HCPCS: 93017

== ENCOUNTER 2022-10-18 10:25 | Outpatient (REF) | payer OTHER, SELFPAY ==
[2022-10-18 14:26] LABS: Abs Immature Grans 0.01 10^3/uL (0.0-0.06); Absolute Basophil Count 0.03 10^3/uL (0.0-0.2); Absolute Eosinophil Count 0.05 10^3/uL (0.0-0.7); Absolute Lymphocyte Count 1.25 10^3/uL (1.2-3.4); Absolute Monocyte Count 0.52 10^3/uL (0.1-0.8); Absolute Neutrophil Count 2.63 10^3/uL (1.2-6.7); Basophils % 0.7; Eosinophils % 1.1; HCT 46.6 % (40.0-50.0); HGB 14.7 g/dL (13.5-17.5); Immature Grans % 0.2; Lymphocytes % 27.8; MCH 28.2 pg (27.0-33.0); MCHC 31.5 % (32.0-36.0); MCV 89 fL (80-95); MPV 10.9 fL (8.0-11.0); Monocytes % 11.6; Neutrophils % 58.6; Platelet Count 248 10^3/uL (130-400); RBC 5.21 10^6/uL (4.36-5.78); RDW 13.4 % (11.8-14.1); RDW-SD 43.9 fL; WBC 4.49 10^3/uL (4.4-10.8)
[2022-10-18 14:54] LABS: Iron 137 ug/dL (65-175); Total Iron Binding Capacity 393 ug/dL (250-450); Transferrin Sat 35 % (20-55)
[2022-10-18 15:04] LABS: Ferritin 16 ng/mL (26-388)
== END 2022-10-18 10:26 | disposition home or self-care (01) ==
LOC: NCHCN 10:25
PROVIDERS: PCP Internal Medicine; Visit Provider Internal Medicine
DX: K21.9 Gastro-esophageal reflux disease without esophagitis (principal); E61.1 Iron deficiency; H26.9 Unspecified cataract; Z01.818 Encounter for other preprocedural examination; Z86.010 Personal history of colon polyps
CPT/HCPCS: 82728; 83540; 83550; 85025

== ENCOUNTER 2024-03-16 15:11 | Outpatient (REF) | payer OTHER, SELFPAY ==
[2024-03-16 15:46] LABS: Iron 31 ug/dL (65-175); Total Iron Binding Capacity 406 ug/dL (250-450); Transferrin Sat 8 % (20-55)
[2024-03-16 15:47] LABS: Abs Immature Grans 0.01 10^3/uL (0.0-0.06); Absolute Basophil Count 0.02 10^3/uL (0.0-0.2); Absolute Eosinophil Count 0.03 10^3/uL (0.0-0.7); Absolute Lymphocyte Count 1.33 10^3/uL (1.2-3.4); Absolute Monocyte Count 0.48 10^3/uL (0.1-0.8); Absolute Neutrophil Count 2.17 10^3/uL (1.2-6.7); Basophils % 0.5 %; Eosinophils % 0.7 %; HCT 41.4 % (40.0-50.0); HGB 12.9 g/dL (13.5-17.5); Immature Grans % 0.2 %; Lymphocytes % 32.9 %; MCHC 31.2 % (32.0-36.0); MCV 87 fL (80-95); MPV 10.4 fL (8.0-11.0); Monocytes % 11.9 %; Neutrophils % 53.8 %; Platelet Count 251 10^3/uL (130-400); RBC 4.77 10^6/uL (4.36-5.78); RDW 14.5 % (11.8-14.1); RDW-SD 46.2 fL; WBC 4.04 10^3/uL (4.4-10.8)
[2024-03-16 16:14] LABS: Ferritin 6 ng/mL (26-388); Vitamin B12 172 pg/mL (193-986)
== END 2024-03-16 15:12 | disposition home or self-care (01) ==
LOC: NCHCN 15:11
PROVIDERS: PCP Internal Medicine; Visit Provider Family Medicine
DX: E61.1 Iron deficiency (principal); E53.8 Deficiency of other specified B group vitamins
CPT/HCPCS: 82607; 82728; 83540; 83550; 85025

== ENCOUNTER 2024-04-29 09:03 | Day surgery (SDC) | payer OTHER, SELFPAY ==
--- NOTE | 2024-04-28 19:25 | W.ANESPRE ---
General Info Date of Service Date Performed: 04/29/24 Height: 6 ft 3 in Weight: 89.471 kg Body Mass Index (BMI): 24.6 Surgical Procedure: Operation Date: 04/29/24 10:35 Proposed Procedure Side Surgeon p Colonoscopy/Gastroscopy Quang Orosco MD Meds Allergies and Home Medications Allergies Allergy/AdvReac Type Severity Reaction Status Date / Time clindamycin AdvReac C.Diff Verified 04/28/24 08:56 Home Medication ?Medication ?Instructions ?Recorded testosterone cypionate 200 mg/mL 200 mg IM Q2W 06/03/18 intramuscular kit pantoprazole 40 mg tablet,delayed 40 mg PO BID 11/16/22 release sildenafil 100 mg tablet (Viagra) 100 mg PO DAILY PRN 11/16/22 mecobalamin (vitamin B12) 1,000 1,000 mcg PO DAILY 04/21/24 mcg chewable tablet Current Visit Medications: Current Medications Generic Name Dose Route Start Last Admin Trade Name Freq PRN Reason Stop Dose Admin Ringer's Solution 1,000 mls @ 80 mls/hr 04/29/24 06:00 IV 04/29/24 23:59 INFUSION JUAN PABLO IV Miscellaneous Supplies 1 each 04/29/24 06:00 Iv Access IV 04/29/24 23:59 DIRECTED JUAN PABLO Sodium Chloride 0 ml 04/29/24 06:00 Normal Saline Flush 10 Ml Syr IV 04/29/24 23:59 PRN PRN Sodium Chloride 0 ml 04/29/24 06:00 Normal Saline 10 Ml Vial IJ 04/29/24 23:59 DIRECTED PRN Sterile Water 0 ml 04/29/24 06:00 Water,Injection,Sterile 10 Ml Vial IJ 04/29/24 23:59 DIRECTED PRN PFSH Active Problems Active Problems: Problem Status Onset Code Iron deficiency anemia Acute D50.9 Colorectal polyps Acute K63.5 Encounter for hearing aid fitting Acute Z46.1 Encounter for colorectal cancer screening Acute Z12.11, Z12.12 Chronic diarrhea Acute K52.9 History of exploratory laparotomy Acute Z98.890 S/P colonoscopy Acute ~01/20/19 Z98.890 H/O local excision of skin lesion Acute Z98.890 GERD (gastroesophageal reflux disease) Chronic K21.9 Hypogonadism in male Chronic E29.1 H/O actinic keratosis Resolved Z87.2 Sensorineural hearing loss of both ears Chronic H90.3 Surgical History Surgical History (Updated 04/29/24 @ 09:44 by Connie Constantino) History of cataract surgery History of colonoscopy with polypectomy (~2019) Tobacco Smoking/Tobacco Use Status: Never Alcohol Alcohol Intake: current Alcohol intake frequency: holidays/special occasions only Substance Use Substance use: Never Substance use type: does not use Vital Signs and Lab Results Vital Signs Most Recent Vital Signs in EMR: Temp Pulse Resp BP Pulse Ox 36.2 C L 61 16 141/79 H 94 04/29/24 09:15 04/29/24 09:15 04/29/24 09:15 04/29/24 09:15 04/29/24 09:15 Lab Results Blood Type / Crossmatch: No Data to Display Complete Blood Count: No Data to Display Complete Metabolic Panel: No Data to Display Liver Function Panel: No Data to Display Coagulation Panel: No Data to Display Cardiac Panel: No Data to Display Arterial Blood Gas: No Data to Display Venous Blood Gas: No Data to Display Pancreas Panel: No Data to Display Thyroid Panel: No Data to Display Infectious Disease: No Data to Display Blood Cultures: No Data to Display Toxicology Panel: No Data to Display Imaging and Studies Imaging and Studies Study information below may be from another EMR and interpreted by another provider. Please see original notes in EMR for more complete details. Stress Test Summary: 06/16: 11.46 METS, no ECG evidence of ischemia. Pulmonary Function Summary: 06/16: normal. Anesthesia Assessment and Plan Anesthesia History Personal History: No History of Anesthesia Complications Family History: No Family History of Anesthesia Complications Exercise Tolerance Exercise Tolerance: Metabolic Equivalents>4 Cardiac & Pulmonary Exam Cardiac Exam: Normal S1/S2 Heart Sounds Pulmonary Exam: Clear Bilateral Breath Sounds Implantable Cardiac Device Does patient have a Pacemaker or an ICD?: No Airway Exam Known Difficult Airway: No Mallampati Class: 2 Mouth Opening: Narrow (< 3cm) Thyromental Distance: Greater than 3 cm Neck Range of Motion: Full ROM Neck Circumference: Normal Teeth Condition: Normal Dentition ASA Classification ASA Score: ASA 2 Emergency Case?: No NPO Status NPO Status: NPO Clears >2 hours, Solids >8 hours Anesthesia Plan Resuscitation Status: Full Code Anesthesia Technique: General Anesthesia Airway Planned: Natural Airway Monitors Used: Standard Monitors Preoperative Comments:: 73 yo male for EGD/colo. Sig PMHx: GERD (pantoprazole), denies major.
--- NOTE | 2024-04-28 20:02 | W.PM.DSUDISC ---
Date of service: 04/29/24 Time of Service: 11:47 Discharge Plan Disposition Patient Disposition: Home Condition: Good Discharge Details Reason For Visit: EGD and colonoscopy Attending Provider: Quang Orosco Primary Care Provider: Isabella Ahumada Home Meds and New Rx's Prescriptions: Continued mecobalamin (vitamin B12) 1,000 mcg tablet,chewable 1,000 mcg PO DAILY Patient Comments: PO not chewable pantoprazole 40 mg tablet,delayed release (DR/EC) 40 mg PO BID sildenafil [Viagra] 100 mg tablet 100 mg PO DAILY PRN Rx Instructions: administer 30 minutes to 4 hours before activity testosterone cypionate 200 mg/mL Kit 200 mg IM Q2W Discharge Instructions Instructions: Hiatal hernia, Colon polyps Additional Instructions: Fernie, we were able to complete the upper and lower endoscopy today without much difficulty. With regards to your EGD, there are a couple findings. None are particularly worrisome. I did not see any signs of sloughing esophagitis. The mucosa lining the length of the esophagus was all quite normal and healthy appearing. You do have a fairly large hiatal hernia that may be contributing to some of your symptoms. I do not think this is the source of any anemia. The remainder of your stomach looked fine, with no appreciable abnormalities. 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 There are no stigmata of any recent bleeding here, but I suppose that could be a source of some chronic iron deficiency. I did perform some biopsies of the duodenum, as well as the gastric antrum and body to rule out celiac disease, or atrophic gastritis as a source of iron deficiency. Colonoscopy also went fairly smoothly. He did require some repositioning, but that is not unusual at all. I found 1 polyp, which I removed today. The biopsies and polyp will all be sent off for testing, and once I have the results I will give you a call with any new information. 1. If tolerated, consume a soft, low fiber diet for 1-2 days. 2. Do not drive, drink alcohol, operate machinery, make critical decisions, or do activities that require coordination or balance for 24 hours. 3. Because air was put into your colon during the procedure, expelling air from your rectum (passing gas or farting) is normal. 4. You may not have a bowel movement for 1-3 days because of the colonoscopy prep. This is normal. 5. You may experience a sore throat for 24 to 48 hours. You may use throat lozenges or gargle with warm salt water to relieve the discomfort. 6. Because air was put into your stomach during the procedure, you may experience some belching. 7. Go directly to the emergency room if you notice any of the following: Develop chills (warm to touch), or if you have a thermometer and your temperature is above 101 Difficulty breathing or difficultly swallowing Persistent vomiting Severe abdominal pain, other than gas cramps Severe chest pain Black, tarry stools Any bleeding ? exceeding one tablespoon 8. Call your physician if the site where your intravenous was started becomes red, swollen, painful, and warm to touch. 9. Your physician has reviewed your pre-procedure medications. Please continue to take those medications as previously ordered. You will be given specific information/education regarding any changes to your medications before leaving. Stand Alone Forms: Anesthesia Discharge InstJane Hoff (DSU) Activity:: Activity as Tolerated Diet:: As Tolerated Discharge Orders Discharge Orders: Discharge Order (Routine); Ordered 04/28/24 Ordered By: Quang Orosco DS: Diagnosis Discharge Diagnosis (1) Iron deficiency anemia: Status: Acute Asessment and Plan: Follow-up on biopsy results
--- NOTE | 2024-04-28 20:04 | W.PM.ENDDOP ---
Date of service: 04/29/24 Time of Service: 11:41 Endoscopy Report DATE OF PROCEDURE: 04/29/24 PRE-OP DIAGNOSIS: iron deficiency anemia and screening colonoscopy POST-OP DIAGNOSIS: other (Grade 4 hiatal hernia, duodenal diverticulum; internal hemorrhoids, colon polyp) PROCEDURE: EGD and colonoscopy SURGEON: Quang Orosco ANESTHESIA TYPE: General:No Airway ESTIMATED BLOOD LOSS: 5 PATHOLOGY: other (Random biopsies of duodenum, duodenal bulb, gastric antrum, gastric body; colon polyp at 50 centimeters) COMPLICATIONS: None DISPOSITION: same day INDICATIONS: Fernie is a 73 year old manw riccardo is due for a screening colonsocopy. He also has an iron deficiency anemia and longstanding dyspepsia managed with PPI therapy PREP: Miralax/Dulcolax PROCEDURE START TIME: 10:22 PROCEDURE END TIME: 11:22 COLONOSCOPY RETRACTION TIME: 7 FINDINGS: Grade 4 hiatal hernia, duodenal diverticulum in the first portion of the duodenum; internal hemorrhoids, 0.25 cm polyp at 45 cm from the anus PROCEDURE DESCRIPTION: After the initiation of monitored anesthetic care, and with the assistance of a bite block, I advanced a standard gastroscope through the mouth past the hypopharynx and into the esophagus.? Under the direct vision of the scope, I advanced down the esophagus towards the stomach.? The upper and midesophagus were normal-appearing. Narrowband imaging was used to assist with analysis here. The GE junction measured around 39 cm from the incisors, although it is relatively mobile, and slightly difficult to measure. I did not see any signs of Kennedy's esophagus. There is a large hiatal hernia. I did not see any signs of active bleeding in any area of the hernia. Once I entered the stomach, I performed a brief inspection, followed by retroflexion towards the gastric cardia.? It appears to be a grade 4 hiatal hernia after that, I gently advanced the scope around the incisura angularis and examined the pylorus.? I did not see any signs of ulceration, inflammation, or active gastritis..? Next, I advanced the scope through the pylorus into the duodenum.? The mucosa was pink and healthy appearing.? There is a diverticulum in the first portion of the duodenum. There were no stigmata of recent bleeding.? I was able to visualize bile draining into the duodenum through the ampulla Vater. I did perform some random cold forceps biopsies of the duodenum and duodenal bulb to rule out celiac disease as a source of his anemia.? Again, I returned to the stomach which was carefully examined once again.? I performed cold forceps biopsies of the gastric antrum and body to rule out atrophic gastritis. There is minimal bleeding from the biopsy sites. Finally, I withdrew the scope along the length of the esophagus taking great care to examine the entirety of the mucosa.? I did not appreciate any abnormalities. We then rolled Fernie into the left lateral decubitus position. Care was taken to pad and support him appropriately I began by performing an external anorectal exam.? Perineum and skin were normal, as was the anal verge.? There was no evidence of external hemorrhoids.? Next, I performed a digital rectal exam.? I did not appreciate any abnormal findings.? Next, I advanced a colonoscope into the rectal vault.? I performed retroflexion.? There are internal hemorrhoids.? Using insufflation, I then advanced the colonoscope beyond the rectal folds and into the sigmoid colon before advancing towards the cecum.? The scope was noted to be in the cecum by identification of the ileocecal valve and appendiceal orifice.? I then began withdrawing the colonoscope using repeated irrigation as necessary for full evaluation of the colonic mucosa. Around 45 cm from the anal verge I identified a 0.25 cm polyp. ?It appeared flat in character. ?I was able to remove this with a cold forcep polypectomy. ?I examined the site, and there was minimal bleeding. ?Once this was completed, I continued to withdraw the scope and examine the remainder of the colonic mucosa.?Once the scope was withdrawn to the level of the rectum, great care was taken to examine portions of the rectal folds.? Finally, the scope was withdrawn and the patient was brought to the same-day surgery recovery unit as the anesthetic wore off. ?The findings and instructions were shared with the patient prior to discharge.
--- NOTE | 2024-04-29 01:24 | BOWEL_PTH ---
PATIENT: Fernie Washington LOC: [facility] U#:[id number] AGE/SX: 73/M ROOM: RE04/29/[address]: Quang Orosco MD : 1950 BED: DIS: 04/29/2024 SPEC #: [id number] RECD: 04/29/24 12:54 STATUS: ANA RE #: [id number] HEATHER: 04/29/24 01:[address]: Quang Orosco DEPT: Surgical Specimen RECD BY: Najma Luna ENTERED: 04/29/24 12:56 SP TYPE: Bowel OTHR DR: Isabella Ahumada Tissues: 1 - BIOPSY BOWEL 2 - BIOPSY BOWEL 3 - STOMACH BIOPSY 4 - STOMACH BIOPSY 5 - BIOPSY BOWEL Procedures: GROSS AND MICRO LEVEL 4 Comments: [id number]
[2024-04-29 09:15] VITALS: BP 141/79; PULSE 61; RESP 16; TEMP 36.2; O2SAT 94
[2024-04-29 10:04] VITALS: BMI 24.6
[2024-04-29] MEDS: Lactated Ringers 1,000 ML 80 ML IV (10:16)
[2024-04-29 11:35] VITALS: BP 108/74; PULSE 54; RESP 14; TEMP 36.1; O2SAT 97
[2024-04-29 12:15] VITALS: BP 135/83; PULSE 44; RESP 15; TEMP 36.1; O2SAT 97
--- NOTE | 2024-04-29 12:32 | W.ANESPOSTOP ---
Postoperative Evaluation Date, Time and Location Date Performed: 04/29/24 Time Performed: 12:32 Patient Location: Day Surgery Unit Vital Signs Most Recent Imported Vital Signs: Most Recent Vital Signs Temp Pulse Resp BP Pulse Ox 36.1 C L 54 L 14 108/74 97 04/29/24 11:35 04/29/24 11:35 04/29/24 11:35 04/29/24 11:35 04/29/24 11:35 Pain Score Most Recent Pain Score: Most Recent Pain Score Pain Level 0 04/29/24 09:15 Assessment Mental Status: Awake (Alert & Oriented to Patient Baseline) Airway and Respiratory Function: Patent airway with normal (patient baseline) respiratory exam Cardiovascular Function: Hemodynamically Stable Hydration Status: Adequately Hydrated Nausea & Vomiting: No Nausea or Vomiting Pain: Pt. Denies Any Pain Peripheral Nerve Block: Patient did not receive a nerve block
== END 2024-04-29 13:10 | disposition home or self-care (01) ==
LOC: SUR 09:03
PROVIDERS: PCP Family Medicine; Visit Provider Surgery
PROC: (CPT 45380; principal; 2024-04-29 10:30)
DX: D50.9 Iron deficiency anemia, unspecified (principal); Z12.11 Encounter for screening for malignant neoplasm of colon; D12.5 Benign neoplasm of sigmoid colon; K64.8 Other hemorrhoids; K57.11 Diverticulosis of small intestine without perforation or abscess with bleeding; K44.9 Diaphragmatic hernia without obstruction or gangrene; K31.9 Disease of stomach and duodenum, unspecified; K29.80 Duodenitis without bleeding
CPT/HCPCS: 45380; 43239; 88305; J2405; J2704

== ENCOUNTER 2024-06-03 18:20 | Outpatient (CLI) | payer OTHER, SELFPAY ==
[2024-06-03 16:46] LABS: HCT 43.7 % (40.0-50.0); HGB 13.6 g/dL (13.5-17.5); MCHC 31.1 % (32.0-36.0); MCV 87 fL (80-95); MPV 10.2 fL (8.0-11.0); Platelet Count 235 10^3/uL (130-400); RBC 5.03 10^6/uL (4.36-5.78); RDW 15.1 % (11.8-14.1); RDW-SD 48.2 fL; WBC 6.01 10^3/uL (4.4-10.8)
[2024-06-03 17:08] LABS: Iron 62 ug/dL (65-175); Total Iron Binding Capacity 394 ug/dL (250-450); Transferrin Sat 16 % (20-55)
[2024-06-03 17:35] LABS: Ferritin 12 ng/mL (26-388); Vitamin B12 486 pg/mL (193-986)
== END 2024-06-03 18:21 | disposition home or self-care (01) ==
LOC: LBO 18:20
PROVIDERS: PCP Family Medicine; Visit Provider Family Medicine
DX: E53.8 Deficiency of other specified B group vitamins (principal); E61.1 Iron deficiency
CPT/HCPCS: 36415; 85027; 82607; 82728; 83540; 83550

== ENCOUNTER 2024-09-18 15:46 | Outpatient (CLI) | payer OTHER, SELFPAY ==
[2024-09-18 16:13] LABS: HCT 45.6 % (40.0-50.0); HGB 14.4 g/dL (13.5-17.5); MCH 27.6 pg (27.0-33.0); MCHC 31.6 % (32.0-36.0); MCV 87 fL (80-95); MPV 9.7 fL (8.0-11.0); Platelet Count 182 10^3/uL (130-400); RBC 5.22 10^6/uL (4.36-5.78); RDW 14.6 % (11.8-14.1); RDW-SD 46.8 fL; WBC 5.32 10^3/uL (4.4-10.8)
[2024-09-18 17:10] LABS: Ferritin 10 ng/mL (26-388)
[2024-09-18 17:14] LABS: Iron 35 ug/dL (65-175); Total Iron Binding Capacity 405 ug/dL (250-450); Transferrin Sat 9 % (20-55)
[2024-09-18 17:42] LABS: Vitamin B12 464 pg/mL (193-986)
== END 2024-09-18 15:47 | disposition home or self-care (01) ==
LOC: LBO 15:47
PROVIDERS: General Practice; PCP Family Medicine; Visit Provider Family Medicine
DX: E61.1 Iron deficiency (principal); D51.9 Vitamin B12 deficiency anemia, unspecified
CPT/HCPCS: 36415; 85027; 82607; 82728; 83540; 83550

== ENCOUNTER 2024-11-05 01:08 | Outpatient (CLI) | payer OTHER, SELFPAY ==
[2024-11-05 08:18] LABS: HGB 15.3 g/dL (13.5-17.5); MCH 27.2 pg (27.0-33.0); MCHC 31.2 % (32.0-36.0); MCV 87 fL (80-95); MPV 9.8 fL (8.0-11.0); Platelet Count 204 10^3/uL (130-400); RBC 5.62 10^6/uL (4.36-5.78); RDW 14.6 % (11.8-14.1); RDW-SD 47.3 fL; WBC 4.32 10^3/uL (4.4-10.8)
[2024-11-05] MEDS: Barium Sulfate 2% W/V-Berry Smoothie 450 ML BTL PO ×2 (08:21→08:22)
[2024-11-05 08:44] LABS: Estimated GFR 80.47 (mL/min/1.73m2); Ferritin 17 ng/mL (26-388)
[2024-11-05 08:54] LABS: Iron 131 ug/dL (65-175); Total Iron Binding Capacity 418 ug/dL (250-450); Transferrin Sat 31 % (20-55)
[2024-11-05] MEDS: Omnipaque 350 MG/ML 100 ML BTL IJ (10:24)
[2024-11-05] MEDS: Normal Saline - Diluent 50 ML VIAL IJ (10:25)
--- NOTE | 2024-11-05 10:32 | DI.CT_ITS ---
Exam(s) CT CHEST/ABD/PEL W EXAM: CT CHEST/ABD/PEL W CLINICAL HISTORY: K44.9 Hiatal Hernia, SOB, TECHNIQUE: Imaging Protocol: Axial computed tomography images with coronal and sagittal reformatted images were created and reviewed. Lung Computer Aided Detection (CAD) was utilized. CONTRAST MATERIAL: Intravenous: Omnipaque 350 contrast volume:100 mL Oral: Yes COMPARISON: CT CT ABDOMEN PELVIS W from 10/04/2021 FINDINGS: CHEST: Tracheobronchial tree: Patent where visualized. No evidence of bronchiectasis. Pulmonary parenchyma: No consolidation or dominant measurable mass. There is stable scarring in the [place] bases. No new focal consolidating infiltrates are seen. There is a 3 mm nodule in the right upper lobe (series 10, image 61). Visualized thyroid gland: Unremarkable. Mediastinum and Jeannie: No dominant adenopathy or fluid collection. The esophagus is unremarkable. The re is a small hiatal hernia again seen. Pleura: No effusion or pneumothorax. Heart: The heart is not dilated. Coronary artery calcification is present. No pericardial effusion. Pulmonary arteries: No pulmonary emboli are identified. Aorta: Thoracic aorta non-dilated. No evidence of dissection. Lymph nodes: Within normal limits. Soft tissues: Mild gynecomastia. Bones:Within normal limits for the patient's age. ABDOMEN: Liver: Normal density. There is again seen a mass in the right lobe of the liver measuring 6.7 cm x 5 .8 cm transverse. It shows nodular progressive enhancement consistent with a hemangioma. It is show n o significant change in size compared to the prior examination. There are several simple cysts scatte red throughout the liver. No suspicious hepatic masses are seen. Portal, Superior Mesenteric, and Splenic Veins: Unremarkable. Gallbladder and Biliary Tract: No radiodense calculus or dilation. Pancreas: Normal density, no abnormal calcifications or inflammatory process. The small cysts seen in the inferior aspect of the body of the pancreas is unchanged. It is best appreciated on the sagittal views (series 18, image 52). It measures approximately 5 mm in size. Spleen: Normal. Adrenals: No masses seen. Kidneys: Normal size, contour and axis. No radiodense stones or obstructive uropathy. Stable right re nal cyst. No follow-up is recommended. No suspicious renal masses. Abdominal Aorta: Abdominal portion non-dilated. Atherosclerotic calcification is present. Bowel: No obstruction or bowel wall thickening. There appear to be diverticula associated with the pr oximal duodenum adjacent to the head of the pancreas. The appendix is unremarkable. Peritoneal Cavity: No ascites, collection or mesenteric inflammatory response. No free air. Lymph Nodes: Within normal limits. Bones: Within normal limits for the patient's age. There is a left convex curvature of the spine. Soft Tissues: There is a small fat containing umbilical hernia. PELVIS: Bladder: Symmetric distention, no gross wall thickening. Reproductive Organs: The prostate gland is enlarged. Lymph Nodes: Within normal limits. Bones: Within normal limits. IMPRESSION: 1. Stable presumed hepatic hemangioma. 2. Stable 5 mm cyst adjacent to the pancreas. 3. There is a small unremarkable hiatal hernia. 4. 3 mm right upper lobe pulmonary nodule. Solid nodules smaller than 6 mm do not require routine follow-up in all patients with high clinical r isk; however, some nodules smaller than 6 mm with suspicious morphology, upper lobe location, or both may warrant follow-up at 12 months (grade 2A; weak recommendation, high-quality evidence). (Emelina et al., 2017) Single solid noncalcified nodules. ???Solid nodules smaller than 6 mm (those 5 mm or smaller) do not require routine follow-up in patients at low risk (grade 1C; strong recommendation, low- or very-low- quality evidence). (Emelina et al., 2017) RADIATION DOSE DELIVERED: 1,241.23mGy.cm Total DLP DATA REPOSITORY: All CT scans at this facility are submitted to the National Radiology Data Registry (NRDR) Dose Index Registry (DIR) with the [employer] (A[employer]). RADIATION OPTIMIZATION: All CT scans at this facility use at least one of these dose optimization te chniques: automated exposure control; mA and/or kV adjustment per patient size (includes targeted exa ms where dose is matched to clinical indication); or iterative reconstruction.
== END 2024-11-05 01:28 ==
LOC: DI 01:08
PROVIDERS: PCP Family Medicine; Visit Provider Family Medicine
DX: K44.9 Diaphragmatic hernia without obstruction or gangrene (principal)
CPT/HCPCS: 74177; 85027; 71260; 82565; 82728; 83540; 83550; J3490

== ENCOUNTER 2025-01-29 13:38 | Outpatient (REF) | payer MEDICARE, SELFPAY ==
[2025-01-29 22:51] LABS: PSA, Diagnostic 0.9 ng/mL (<=6.5)
== END 2025-01-29 13:39 | disposition home or self-care (01) ==
LOC: NCHCN 13:38
PROVIDERS: PCP Family Medicine; Visit Provider Family Medicine
DX: R39.9 Unspecified symptoms and signs involving the genitourinary system (principal)
CPT/HCPCS: 84153

== ENCOUNTER 2025-03-19 16:56 | Outpatient (REF) | payer MEDICARE, SELFPAY ==
[2025-03-19 15:16] LABS: Abs Immature Grans 0.01 10^3/uL (0.0-0.06); HCT 47.6 % (40.0-50.0); HGB 15.3 g/dL (13.5-17.5); Immature Grans % 0.2 %; MCH 29.1 pg (27.0-33.0); MCHC 32.1 % (32.0-36.0); MCV 91 fL (80-95); MPV 9.9 fL (8.0-11.0); Platelet Count 190 10^3/uL (130-400); RBC 5.25 10^6/uL (4.36-5.78); RDW 13.2 % (11.8-14.1); RDW-SD 43.8 fL; WBC 4.15 10^3/uL (4.4-10.8)
[2025-03-19 15:55] LABS: Anion Gap 5.5 mmol/L (3-11); BUN 19 mg/dL (7-18); CO2 31.5 mmol/L (21.0-32.0); Calcium 9.3 mg/dL (8.5-10.1); Chloride 102 mmol/L (98-107); Cholesterol 201 mg/dL (<200); Estimated GFR 94.03 (mL/min/1.73m2); Ferritin 29 ng/mL (26-388); Glucose 95 mg/dL (74-106); HDL Cholesterol 44 mg/dL (>or=40); Potassium 5.4 mmol/L (3.5-5.1); Sodium 139 mmol/L (136-145); Triglyceride 408 mg/dL (<150)
[2025-03-19 16:19] LABS: LDL CHOLESTEROL 119 mg/dL (<100)
== END 2025-03-19 16:57 | disposition home or self-care (01) ==
LOC: NCHCN 16:56
PROVIDERS: PCP Family Medicine; Visit Provider Family Medicine
DX: E61.1 Iron deficiency (principal); I10 Essential (primary) hypertension
CPT/HCPCS: 80048; 80061; 83721; 82728; 85025

== ENCOUNTER → 2025-06-07 10:48 | Outpatient (BNVA) | payer MEDICARE, SELFPAY | PROVIDERS: PCP Family Medicine; Referring Provider Family Medicine; Visit Provider Nurse Practitioner Gerontology | DX: N40.0 Benign prostatic hyperplasia without lower urinary tract symptoms (principal); R39.9 Unspecified symptoms and signs involving the genitourinary system | CPT/HCPCS: 99215; 81002 ==

== ENCOUNTER 2025-07-27 16:01 | Emergency (ER) | payer MEDICARE, SELFPAY ==
[2025-07-27] VITALS (13 sets, daily range): BP systolic 146–202; BP diastolic 87–116; PULSE 64–72; RESP 18; TEMP 36.4; O2SAT 95–98
--- NOTE | 2025-07-27 16:15 | DI.CT_ITS ---
Exam(s) CT ABDOMEN PELVIS W EXAM: CT ABDOMEN PELVIS W CLINICAL HISTORY: lower abd pain, nausea, TECHNIQUE: Imaging Protocol: Axial computed tomography images with coronal and sagittal reformatted images were created and reviewed. CONTRAST MATERIAL: Intravenous: Omnipaque 350 Contrast volume:100 mL Oral: No COMPARISON: CT CT ABDOMEN PELVIS W from 09/27/[address] ABDOMEN PELVIS W from 10/04/[address] CHEST/ABD/PEL W from 11/05/2024 FINDINGS: ABDOMEN: Lung Bases: There is a small hiatal hernia. Liver: Normal density. Again seen several well-circumscribed hypodense lesions throughout the liver. The largest is in the left lobe and measures 1.4 cm. There is again seen a mass in the right lobe of the liver which shows nodular enhancement and measures at least 7 by 5.6 cm. Its appearance is unchanged. This likely reflects a hemangioma. No suspicious hepatic masses are present. Portal, Superior Mesenteric, and Splenic Veins: Unremarkable. Gallbladder and Biliary Tract: No radiodense calculus or dilation. Pancreas: Normal density, no abnormal calcifications or inflammatory process. Spleen: Normal. Adrenals: No masses seen. Kidneys: There is delayed enhancement of the left kidney. There is a tiny 2 mm density in the distal left ureter (series 8, image 94). This may represent a tiny stone. However, its size appears out of proportion to the level of decreased enhancement of the kidney. No other obstructing lesions are seen. A ureteral or bladder mass should also be considered. The right kidney shows normal enhancement. There is a simple right renal cysts. No follow-up is recommended. There are no suspicious renal masses present. Abdominal Aorta: Abdominal portion non-dilated. Atherosclerotic calcification is present. Bowel: No obstruction or bowel wall thickening. Appendix is unremarkable. There are diverticula associated with the duodenum. The stomach is incompletely distended limiting evaluation. No gross abnormalities identified. Peritoneal Cavity: No ascites, collection or mesenteric inflammatory response. No free air. Lymph Nodes: Within normal limits. Bones: Within normal limits for the patient's age. Soft Tissues: Unremarkable. PELVIS: Bladder: The urinary bladder is incompletely distended limiting evaluation. Reproductive Organs: Prostate gland is at the upper limits of normal in size. Lymph Nodes: Within normal limits. Bones: Within normal limits for the patient's age. IMPRESSION: 1. There is delayed enhancement of the left kidney. There is a question of a 1- 2 mm calcification in the distal left ureter which may represent an obstructing stone. The possibility of an obstructing mass or noncalcified stone should be considered. Urology consult is recommended. 2. The urinary bladder is incompletely distended limiting evaluation. 3. The prostate gland is at the upper limits of normal to mildly enlarged. 4. Stable hepatic lesions including hepatic hemangioma. 5. Findings were discussed with Dr Simon at 5:53 p.m. on 07/27/2025. RADIATION DOSE DELIVERED: 532.29mGy.cm Total DLP DATA REPOSITORY: All CT scans at this facility are submitted to the National Radiology Data Registry (NRDR) Dose Index Registry (DIR) with the [employer] (ACR). RADIATION OPTIMIZATION: All CT scans at this facility use at least one of these dose optimization techniques: automated exposure control; mA and/or kV adjustment per patient size (includes targeted exams where dose is matched to clinical indication); or iterative reconstruction.
--- NOTE | 2025-07-27 16:20 | ED.GENADUL_ITS ---
Discharge Plan Disposition Patient Disposition: Home Discharge Details Clinical Impression: Kidney stone on left side, Hematuria Primary Care Provider: Isabella Ahumada ED Provider: Chantelle Brown Home Meds and New Rx's Prescriptions: New oxycodone-acetaminophen 5-325 mg Tablet 1 tab PO .q4-6 hours PRN Qty: 5 0RF ondansetron 4 mg Tablet,Disintegrating 4 mg PO Q8H PRN PRNQty: 10 0RF No Action finasteride 5 mg tablet 5 mg PO DAILY pantoprazole 40 mg tablet,delayed release (DR/EC) 40 mg PO BID testosterone cypionate 200 mg/mL Kit 200 mg IM Q2W Discharge Instructions Additional Instructions: Please call Dr. Martines's office first thing in the morning to schedule follow-up appointment and to let them know you were seen here in the emergency department. On CAT scan there is a tiny 2 mm density in the left distal ureter, this may represent a tiny stone. It is recommended that you have this evaluated on outpatient basis with urology, as there may be other structural issues that need to be ruled out. Please stay well-hydrated, drinking plenty of fluids throughout the day. For pain I recommend that you use ibuprofen 600 mg every 6-8 hours. For severe pain you may use the oxycodone prescribed. For nausea you may use the Zofran. Return to emergency care if you develop new fever/chills, difficulty emptying your bladder, uncontrollable vomiting/are unable to stay well-hydrated, have severe pain that is not able to be controlled with medication, or if you are very worried and need to be rechecked again immediately Stand Alone Forms: Portal Information Referrals: Tim Martines MD [ [facility] STAFF PHYSICIAN, Urology] HPI General Date/Time Provider Initiated Documentation: 07/27/25 16:02 . HPI Narrative: Fernie is a 74-year-old male presents emergency department accompanied by his for evaluation of left lower quadrant pain radiating down to his groin; sudden onset of pain at 1330 this afternoon after a nap. He also reports an unusual feeling with frequency of urination and microscopic blood in urine on dipstick. Also reports nausea with multiple episodes of vomiting and chills attributed to the pain. Denies fevers, recent illness such as congestion/sore throat/cough, abdominal symptoms prior to onset of pain, change in bowel func tion, wolf blood in stool or urine. PMH notable for h/o kidney stone 30 years ago, HTN, BPH. Recent colonoscopy 2 years ago, no abnormalities. Related Data Home Medications ?Medication ?Instructions ?Recorded ?Confirmed testosterone cypionate 200 mg/mL 200 mg IM Q2W 8 07/27/25 intramuscular kit pantoprazole 40 mg tablet,delayed 40 mg PO BID 3 07/27/25 release finasteride 5 mg tablet 5 mg PO DAILY 06/07/2507/27 ondansetron 4 mg disintegrating 4 mg PO Q8H PRN PRN #1 0 tabs 07/27/25 tablet oxycodone-acetaminophen 5 mg-325 1 tab PO .q4-6 hours PRN #5 tabs 07/27/25 mg tablet Previous Rx's ?Medication ?Instructions ?Recorded ondansetron 4 mg disintegrating 4 mg PO Q8H PRN PRN #1 0 tabs 07/27/25 tablet oxycodone-acetaminophen 5 mg-325 1 tab PO .q4-6 hours PRN #5 tabs 07/27/25 mg tablet Allergies Allergy/AdvReac Type Severity Reaction Status Date / Time clindamycin AdvReac C.Diff Verified 07/27/25 18:25 General Stated Complaint: Abd Prob CECELIA: 3 Course Vital Signs Vital signs: Vital Signs Temperature 36.4 C 07/27/25 16:07 Pulse 66 07/27/25 16:07 Respiratory Rate 18 07/27/25 16:07 Blood Pressure 195/116 H 07/27/25 16:07 Pulse Oximetry 96 07/27/25 16:07 Temperature 36.4 C 07/27/25 16:07 Pulse 66 07/27/25 16:07 Respiratory Rate 18 07/27/25 16:07 Blood Pressure 195/116 H 07/27/25 16:07 Pulse Oximetry 96 07/27/25 16:07 Pain Level 8 07/27/25 16:07 Medical Decision Making Fernie is a 74-year-old male presents emergency department accompanied by his for evaluation of left lower quadrant pain radiating down to his groin; sudden onset of pain at 1330 this afternoon after a nap. He also reports an unusual feeling with frequency of urination and microscopic blood in urine on dipstick. Also reports nausea with multiple episodes of vomiting and chills attributed to the pain. Denies fevers, recent illness such as congestion/sore throat/cough, abdominal symptoms prior to onset of pain, change in bowel function, wolf blood in stool or urine. PMH notable for h/o kidney stone 30 years ago, HTN, BPH. Recent colonoscopy 2 years ago, no abnormalities. Physical exam remarkable for uncomfortable appearing patient holding his left lower quadrant. Abdomen soft, nondistended, nontender to palpation with normoactive bowel sounds. Easy work of breathing, lung sounds clear bilaterally. Normal heart sounds, regular rate and rhythm. DDx includes but is not limited to: Nephrolithiasis, pyelonephritis, diverticulitis, colitis, pancreatitis, hepatitis, cholecystitis, cholelithiasis. Patient does not meet sepsis criteria. I independently interpreted the following tests: CBC, CMP, magnesium, lipase all unremarkable. UA notable for specific gravity greater than 1038, large blood, moderate bilirubin. Negative leuks and nitrites. Not consistent with UTI. CT abdomen pelvis performed, significant for delayed enhancement of left kidney and question of 1 to 2 mm calcification in the distal left ureter. Question obstructing stone versus obstructing mass. Stable hepatic lesions noted. While in the emergency department they received IV Zofran, Toradol and morphine with good improvement of symptoms. History and presentation consistent with uncomplicated kidney stone, though there is concern for possible obstructing mass. Reviewed findings with Fernie, including labs and CT results. Recommend close follow-up with urology for further evaluation/management. I did discuss use of tamsulosin, however Fernie has had significant hypotension in the past with this medication even at low doses, so this will be withheld at this time. Reviewed discharge instructions with patient and his , including importance of follow-up with urology, symptomatic management, straining urine, and red flags indicate need for return to emergency care. He voices agreement with plan of care Imaging Data Radiologic Study: Radiologist's impression: Exam(s) CT ABDOMEN PELVIS W EXAM: CT ABDOMEN PELVIS W CLINICAL HISTORY: lower abd pain, nausea, TECHNIQUE: Imaging Protocol: Axial computed tomography images with coronal and sagittal reformatted images were created and reviewed. CONTRAST MATERIAL: Intravenous: Omnipaque 350 Contrast volume:100 mL Oral: No COMPARISON: CT CT ABDOMEN PELVIS W from 09/27/[address] ABDOMEN PELVIS W from 10/04/[address] CHEST/ABD/PEL W from 11/05/2024 FINDINGS: ABDOMEN: Lung Bases: There is a small hiatal hernia. Liver: Normal density. Again seen several well-circumscribed hypodense lesions throughout the liver. The largest is in the left lobe and measures 1.4 cm. There is again seen a mass in the right lobe of the liver which shows nodular enhancement and measures at least 7 by 5.6 cm. Its appearance is unchanged. This likely reflects a hemangioma. No suspicious hepatic masses are present. Portal, Superior Mesenteric, and Splenic Veins: Unremarkable. Gallbladder and Biliary Tract: No radiodense calculus or dilation. Pancreas: Normal density, no abnormal calcifications or inflammatory process. Spleen: Normal. Adrenals: No masses seen. Kidneys: There is delayed enhancement of the left kidney. There is a tiny 2 mm density in the distal left ureter (series 8, image 94). This may represent a tiny stone. However, its size appears out of proportion to the level of decreased enhancement of the kidney. No other obstructing lesions are seen. A ureteral or bladder mass should also be considered. The right kidney shows normal enhancement. There is a simple right renal cysts. No follow-up is recommended. There are no suspicious renal masses present. Abdominal Aorta: Abdominal portion non-dilated. Atherosclerotic calcification is present. Bowel: No obstruction or bowel wall thickening. Appendix is unremarkable. There are diverticula associated with the duodenum. The stomach is incompletely distended limiting evaluation. No gross abnormalities identified. Peritoneal Cavity: No ascites, collection or mesenteric inflammatory response. No free air. Lymph Nodes: Within normal limits. Bones: Within normal limits for the patient's age. Soft Tissues: Unremarkable. PELVIS: Bladder: The urinary bladder is incompletely distended limiting evaluation. Reproductive Organs: Prostate gland is at the upper limits of normal in size. Lymph Nodes: Within normal limits. Bones: Within normal limits for the patient's age. IMPRESSION: 1. There is delayed enhancement of the left kidney. There is a question of a 1- 2 mm calcification in the distal left ureter which may represent an obstructing stone. The possibility of an obstructing mass or noncalcified stone should be considered. Urology consult is recommended. 2. The urinary bladder is incompletely distended limiting evaluation. 3. The prostate gland is at the upper limits of normal to mildly enlarged. 4. Stable hepatic lesions including hepatic hemangioma. 5. Findings were discussed with Dr Simon at 5:53 p.m. on 07/27/2025. 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) BPH (benign prostatic hyperplasia) (Chronic) Cyst of pancreas (Acute) Iron deficiency anemia (Acute) Colorectal polyps (Acute) Encounter for hearing aid fitting (Acute) Encounter for colorectal cancer screening (Acute) Chronic diarrhea (Acute) History of exploratory laparotomy (Acute) 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 S/P colonoscopy (Acute ~01/20/19) 2006- normal H/O local excision of skin lesion (Acute) GERD (gastroesophageal reflux disease) (Chronic) Hypogonadism in male (Chronic) Sensorineural hearing loss of both ears (Chronic) Medical History Cataract Tubular adenoma of colon (~04/2024) Surgical History History of esophagogastroduodenoscopy (~04/2024) History of cataract surgery History of colonoscopy with polypectomy (~04/2024) Social History Smoking/Tobacco Use Status: Never Smoking risk assessment performed?: Yes Alcohol Intake: current Alcohol Intake frequency: holidays/special occasions only Drug use: Never Substance use type: does not use Housing: house Current gender identity: male Additional [facility]
[2025-07-27 16:27] LABS: Abs Immature Grans 0.03 10^3/uL (0.0-0.06); HCT 50.9 % (40.0-50.0); HGB 16.9 g/dL (13.5-17.5); Immature Grans % 0.3 %; MCH 29.7 pg (27.0-33.0); MCHC 33.2 % (32.0-36.0); MCV 90 fL (80-95); MPV 9.8 fL (8.0-11.0); Platelet Count 203 10^3/uL (130-400); RBC 5.69 10^6/uL (4.36-5.78); RDW 13.2 % (11.8-14.1); RDW-SD 43.1 fL; WBC 9.81 10^3/uL (4.4-10.8)
[2025-07-27] MEDS: Ketorolac 15 MG/ML VIAL IVP (16:32)
[2025-07-27] MEDS: Normal Saline 1,000 ML 1000 ML IV (16:32)
[2025-07-27] MEDS: Ondansetron 4 MG/2 ML VIAL IVP (16:33)
[2025-07-27 16:41] LABS: Lipase 40 U/L (<53)
[2025-07-27] MEDS: Normal Saline - Diluent 50 ML VIAL IJ (16:41)
[2025-07-27] MEDS: Normal Saline Flush 10 ML SYR IVP (16:41)
[2025-07-27 16:42] LABS: Magnesium 1.9 mg/dL (1.6-2.6)
[2025-07-27] MEDS: Omnipaque 350 MG/ML 100 ML BTL IJ (16:42)
[2025-07-27 16:43] LABS: ALT 22 U/L (10-49); AST 28 U/L (<34); Albumin 4.5 g/dL (3.2-5.0); Alkaline Phosphatase 86 U/L (46-116); Anion Gap 7.8 mmol/L (3-11); BUN 15 mg/dL (9-23); Bilirubin, Total 0.40 mg/dL (0.2-1.2); CO2 30.2 mmol/L (20.0-31.0); Calcium 9.2 mg/dL (8.3-10.6); Chloride 100 mmol/L (98-107); Glucose 128 mg/dL (74-106); Potassium 3.8 mmol/L (3.5-5.1); Sodium 138 mmol/L (136-145); Total Protein 7.4 g/dL (5.7-8.2)
[2025-07-27 17:17] LABS: Glucose Negative (Negative)
[2025-07-27 17:24] LABS: C & S Indicated? No; RBC >50 HPF (0-2); WBC 0-2 HPF (0-5)
[2025-07-27] MEDS: Ondansetron O.D.T. 4 MG TABEF, 3 TABS/BTL PO (19:06)
[2025-07-27] MEDS: oxyCODONE 5 mg/Acetaminophen 325 mg TAB 1 TAB PO (19:06)
== END 2025-07-27 19:08 | disposition home or self-care (01) ==
PROVIDERS: Emergency Provider Nurse Practitioner Family; PCP Family Medicine
DX: N20.0 Calculus of kidney (principal); R31.9 Hematuria, unspecified
CPT/HCPCS: 36415; 80053; 83690; 96374; 96376; 99285; 74177; 81003; 81015; 83735; 85025; J1885; J2405; J3490

== ENCOUNTER 2025-07-30 18:08 | Observation (INO) | payer MEDICARE, SELFPAY ==
[2025-07-30] VITALS (8 sets, daily range): BP systolic 121–191; BP diastolic 69–106; PULSE 66–100; RESP 17–20; TEMP 36.6–37; O2SAT 93–95
[2025-07-30 18:30] LABS: Glucose Negative (Negative)
--- NOTE | 2025-07-30 18:34 | W.ED.GENAD ---
Discharge Plan Disposition Patient Disposition: Admit to [facility] Condition: Stable Discharge Details Clinical Impression: Acute UTI, Kidney stone Primary Care Provider: Isabella Ahumada ED Provider: John Aquino Home Meds and New Rx's Prescriptions: No Action finasteride 5 mg tablet 5 mg PO DAILY pantoprazole 40 mg tablet,delayed release (DR/EC) 40 mg PO BID oxycodone-acetaminophen 5-325 mg Tablet 1 tab PO .q4-6 hours PRN Qty: 5 0RF ondansetron 4 mg Tablet,Disintegrating 4 mg PO Q8H PRN PRNQty: 10 0RF hydrocodone-acetaminophen 5-325 mg tablet 1 tab PO Q6H PRN (Reason: pain) testosterone cypionate 200 mg/mL Kit 200 mg IM Q2W HPI General Mode of arrival: ambulatory. Date/Time Provider Initiated Documentation: 07/30/25 18:09. Limitations to Documentation: no limitations. Information obtained by: patient. History of Present Illness 74 year old M presents to the emergency department with the chief complaint of left flank pain, described as moderate, Quality is described as sharp, and is localized to the back and abdomen. Patient reports no radiation. Patient started experiencing this day(s) (3) and it has been constant. No relieving factors improve symptom(s), No exacerbating factors reported . Patient notes fever/chills. Patient did receive the following treatments prior to arrival, none Related Data Home Medications ?Medication ?Instructions ?Recorded ?Confirmed testosterone cypionate 200 mg/mL 200 mg IM Q2W 06/03/18 07/30/25 intramuscular kit pantoprazole 40 mg tablet,delayed 40 mg PO BID 11/16/22 07/30/25 release finasteride 5 mg tablet 5 mg PO DAILY 06/07/25 07/30/25 ondansetron 4 mg disintegrating 4 mg PO Q8H PRN PRN #10 tabs 07/27/25 07/30/25 tablet oxycodone-acetaminophen 5 mg-325 1 tab PO .q4-6 hours PRN #5 tabs 07/27/25 07/30/25 mg tablet hydrocodone 5 mg-acetaminophen 325 1 tab PO Q6H PRN pain 07/30/25 07/30/25 mg tablet Previous Rx's ?Medication ?Instructions ?Recorded ondansetron 4 mg disintegrating 4 mg PO Q8H PRN PRN #10 tabs 07/27/25 tablet oxycodone-acetaminophen 5 mg-325 1 tab PO .q4-6 hours PRN #5 tabs 07/27/25 mg tablet Allergies Allergy/AdvReac Type Severity Reaction Status Date / Time clindamycin AdvReac C.Diff Verified 07/30/25 18:16 General Stated Complaint: Abd Prob CECELIA: 3 Review of Systems All systems reviewed & are unremarkable except as noted in HPI and below Constitutional Constitutional: Denies chills and Denies fever(s) Gastrointestinal Gastrointestinal: Reports abdominal pain, Reports nausea and Denies vomiting Genitourinary Genitourinary: Denies dysuria Musculoskeletal Musculoskeletal: Reports back pain Exam Const General: no acute distress Orientation: alert HENMT Head: normal to inspection Ears: external ears normal General nose exam: external nose normal Mouth: moist mucous membranes Eyes General: appearance normal, both eyes and all related structures Neck Neck: normal visual inspection Resp Effort & Inspection: normal respiratory effort and able to speak in complete sentences Cardio Rate: regular rate GI Palpation: soft and tender Back/Spine/Pelvis Back: no CVA tenderness Skin General skin exam: no rashes or lesions noted Neuro General: patient alert and patient oriented x3 Extrem General: normal to inspection Psych Mental Status: mental status grossly normal Course Vital Signs Vital signs: Vital Signs Temperature 37.0 C 07/30/25 18:12 Pulse 100 H 07/30/25 18:12 Respiratory Rate 20 07/30/25 18:12 Blood Pressure 191/106 H 07/30/25 18:12 Pulse Oximetry 95 07/30/25 18:12 Temperature 37.0 C 07/30/25 18:15 Pulse 100 H 07/30/25 18:15 Respiratory Rate 20 07/30/25 18:15 Blood Pressure 191/106 H 07/30/25 18:15 Blood Pressure Position Sitting 07/30/25 18:15 Pulse Oximetry 95 07/30/25 18:15 Oxygen Delivery Method Room Air 07/30/25 18:15 Oxygen Flow Rate 0 07/30/25 18:15 Medical Decision Making 74-year-old male comes in with continued left flank and lower abdominal pain. He was seen on the second and had labs and a CT which showed a possible 1 to 2 mm distal ureter stone versus small mass. He was discharged with Percocet and Zofran and states he was doing well until today when the pain increased and the Percocet was not controlling it. He also had chills and states he had a temp of 100.4 at home so came here for reevaluation. Denies any vomiting, gross hematuria. His abdomen is soft and nondistended but does have tenderness in the left lower quadrant, does not have any CVA tenderness. Concern for pyelonephritis versus infected kidney stone, will check a CBC CMP lactate procalcitonin, UA and noncontrast CT abdomen pelvis to further evaluate. Patient's urine with over 50 white cells and over 50 red cells and also packed with bacteria, will give a dose of ceftriaxone while other testing is pending. Patient with a leukocytosis to 11 with a left shift, also with a mild SHERMAN with a creatinine of 1.49. CT shows a 1 mm stone in the distal left ureter similar to what was seen on the second. Also has left hydronephrosis now. Concern for infected kidney stone, will consult with urology at [facility],attempted to speak with Dr. Martines from urology at [facility] but he is not officially on-call and did not answer his pager. Spoke with Dr. Ibrahim from urology at [facility]. He reviewed the case and the patient's presentation and did not feel the patient required transfer down for stent placement. Advised the patient to be admitted here and be given fluids and till he passes the stone, if he does become septic then they would consider taking him for stent placement. Will discuss with hospitalist about admission here. Patient states he did try taking a 0.2 mg dose of tamsulosin earlier so we will give an additional 0.2 mg dose here. Differential Diagnosis Differential Diagnosis: Kidney stone, pyelonephritis [facility] All Active Problems (Updated 07/30/25 @ 21:13 by John Aquino MD) Kidney stone (Chronic) Acute UTI (Acute) Hematuria (Acute) Kidney stone on left side (Acute) Lower urinary tract symptoms (LUTS) (Acute) Skin cyst (Acute) Internal hemorrhage (Acute) Hiatal hernia (Chronic) Cobalamin deficiency (Acute) Anemia (Chronic) Hypoxemia (Acute) Generalized hyperhidrosis (Acute) Altered bowel function (Acute) Iron deficiency (Acute) Ventricular premature complex (Acute) Dyspnea (Acute) Disorder of pancreas (Acute) GERD without esophagitis (Acute) History of colon polyps (Acute) 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) BPH (benign prostatic hyperplasia) (Chronic) Cyst of pancreas (Acute) Iron deficiency anemia (Acute) Colorectal polyps (Acute) Encounter for hearing aid fitting (Acute) Encounter for colorectal cancer screening (Acute) Chronic diarrhea (Acute) History of exploratory laparotomy (Acute) 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 S/P colonoscopy (Acute ~01/20/19) 2006- normal H/O local excision of skin lesion (Acute) GERD (gastroesophageal reflux disease) (Chronic) Hypogonadism in male (Chronic) Sensorineural hearing loss of both ears (Chronic) Medical History Cataract Tubular adenoma of colon (~04/2024) Surgical History History of esophagogastroduodenoscopy (~04/2024) History of cataract surgery History of colonoscopy with polypectomy (~04/2024) Social History Smoking/Tobacco Use Status: Never Smoking risk assessment performed?: Yes Alcohol Intake: current Alcohol Intake frequency: holidays/special occasions only Drug use: Never Substance use type: does not use Housing: house Current gender identity: male Additional Social history: [employer]
[2025-07-30 18:37] LABS: RBC >50 HPF (0-2); WBC >50 HPF (0-5)
[2025-07-30 18:38] LABS: C & S Indicated? Yes
[2025-07-30 18:58] LABS: Abs Immature Grans 0.04 10^3/uL (0.0-0.06); HCT 45.0 % (40.0-50.0); HGB 14.5 g/dL (13.5-17.5); Immature Grans % 0.4 %; MCH 28.7 pg (27.0-33.0); MCHC 32.2 % (32.0-36.0); MCV 89 fL (80-95); MPV 9.6 fL (8.0-11.0); Platelet Count 178 10^3/uL (130-400); RBC 5.05 10^6/uL (4.36-5.78); RDW 13.6 % (11.8-14.1); RDW-SD 44.4 fL; WBC 11.19 10^3/uL (4.4-10.8)
--- NOTE | 2025-07-30 19:08 | DI.CT_ITS ---
Exam(s) CT ABDOMEN PELVIS WO EXAM: CT ABDOMEN PELVIS WO CLINICAL HISTORY: left flank pain. TECHNIQUE: Imaging Protocol: Axial computed tomography images with coronal and sagittal reformatted images were created and reviewed CONTRAST MATERIAL: Intravenous: none Oral: None COMPARISON: CT CT ABDOMEN PELVIS W from 07/27/2025 FINDINGS: VISUALIZED LUNG BASES: Recent markings in the left lung base posterior basal segment left lower lobe. There are no pleural effusions.. ABDOMEN: There is no ascites. Hiatal hernia again noted. LIVER: On this noninfused study the previously described multiple small cysts in the liver again noted. Is interesting to note that the large hemangioma demonstrated on the recent contrast infused study is difficult to appreciate on this noninfused study. It was recently measured at 7 x 5.6 cm (right lobe). GALLBLADDER/BILIARY: No obvious gallbladder pathology. CBD is not dilated. PANCREAS: No evidence of pancreatic mass nor dilatation of the pancreatic duct. SPLEEN: Spleen is not enlarged. No obvious intrasplenic lesions. ADRENALS: There are no significant adrenal masses. KIDNEYS:Right kidney unremarkable. There is again noted mild hydronephrosis and hydroureter on the left side. There is a tiny culprit 1 mm calculus in the distal left ureter (series 7/image 98) which is unchanged in position from CT scan of 3 days ago. No other radiopaque calculi seen in the ureters nor within the collapsed urinary bladder. ABDOMINAL AORTA: Abdominal aorta is not enlarged. LYMPH NODES: There is no retroperitoneal nor paraaortic adenopathy. ABDOMINAL WALL: No evidence of significant anterior abdominal wall nor inguinal hernia. GI: Sigmoid is quite redundant, reaching the right upper quadrant. The large bowel above the sigmoid is moderately distended. PELVIS: LYMPH NODES: There is no intrapelvic nor inguinal adenopathy. GI: No evidence of appendicitis.No evidence of sigmoid diverticulitis. URINARY BLADDER: Collapsed. REPRODUCTIVE: Moderate enlargement of the prostate gland. Prostate width is 5.8 cm OSSEOUS: No significant osseous lesions. No fractures. There is partial ankylosis of both sacroiliac joints. IMPRESSION: 1. There is a 1 millimeter calculus in the lower left ureter just above the ureterovesical junction. There is mild hydronephrosis and hydroureter on the left side above this calculus. Opposite-right side appears unremarkable. 2. Urinary bladder is collapsed. No obvious radiopaque calculi seen within the collapsed urinary bladder lumen. 3. Moderate prostate enlargement. Very lengthy and redundant sigmoid. No sigmoid diverticular disease. However, there is moderate dilatation of the colon above the level of the sigmoid. Ankylosis of the sacroiliac joints noted. Preliminary virtual Radiology report was reviewed. RADIATION DOSE DELIVERED: 767.32mGy.cm Total DLP DATA REPOSITORY: All CT scans at this facility are submitted to the National Radiology Data Registry (NRDR) Dose Index Registry (DIR) with the [employer] (ACR). RADIATION OPTIMIZATION: All CT scans at this facility use at least one of these dose optimization techniques: automated exposure control; mA and/or kV adjustment per patient size (includes targeted exams where dose is matched to clinical indication); or iterative reconstruction.
[2025-07-30 19:17] LABS: Lipase 26 U/L (<53); Magnesium 2.0 mg/dL (1.6-2.6)
[2025-07-30 19:19] LABS: ALT 22 U/L (10-49); AST 36 U/L (<34); Albumin 4.2 g/dL (3.2-5.0); Alkaline Phosphatase 73 U/L (46-116); Anion Gap 8 mmol/L (3-11); BUN 18 mg/dL (9-23); Bilirubin, Total 0.60 mg/dL (0.2-1.2); CO2 26.9 mmol/L (20.0-31.0); Calcium 8.6 mg/dL (8.3-10.6); Chloride 99 mmol/L (98-107); Glucose 106 mg/dL (74-106); Potassium 4.0 mmol/L (3.5-5.1); Sodium 134 mmol/L (136-145); Total Protein 7.0 g/dL (5.7-8.2)
[2025-07-30] MEDS: Ketorolac 15 MG/ML VIAL IVP (19:20)
[2025-07-30] MEDS: Normal Saline 1,000 ML 1000 ML IV ×2 (19:20→20:30)
[2025-07-30 19:26] LABS: Procalcitonin 0.10 ng/mL
[2025-07-30] MEDS: cefTRIAXone 2 GM/50 ML BAG IVPB (19:45)
--- NOTE | 2025-07-30 20:01 | DI.VRAD_ITS ---
PROCEDURE INFORMATION: Exam: CT Abdomen And Pelvis Without Contrast Exam date and time: 07/30/2025 6:59 PM Age: 74 years old Clinical indication: Abdominal pain; Left flank pain; Additional info: Gross hematuria. HX of kidney stones TECHNIQUE: Imaging protocol: Computed tomography of the abdomen and pelvis without contrast. Radiation optimization: All CT scans at this facility use at least one of these dose optimization techniques: automated exposure control; mA and/or kV adjustment per patient size (includes targeted exams where dose is matched to clinical indication); or iterative reconstruction. COMPARISON: CT ABDOMEN PELVIS W 07/27/2025 4:38 PM FINDINGS: Lungs: Linear scarring or atelectasis both lung bases. Diaphragm: Small hiatal hernia. Liver: Several liver hypodensities that cannot be further characterized on the current examination largest 6.5 cm. Gallbladder and biliary ducts: Normal. No calcified stones. No ductal dilation. Pancreas: Normal. No ductal dilation. Spleen: Normal. No splenomegaly. Adrenal glands: Normal. No mass. Kidneys and ureters: 1 mm stone distal left ureter. Mild left hydronephrosis. Stomach and bowel: Above average stool throughout the colon. Mild diffuse distension of the colon suggestive of an ileus. No evidence of intestinal perforation or obstruction. Appendix: No evidence of appendicitis. Intraperitoneal space: Unremarkable. No free air. No significant fluid collection. Vasculature: Aorta demonstrates mild atherosclerotic calcification. No abdominal aortic aneurysm. Lymph nodes: Unremarkable. No enlarged lymph nodes. Urinary bladder: Unremarkable as visualized. Reproductive: Unremarkable as visualized. Bones/joints: Unremarkable. No acute fracture. Soft tissues: Unremarkable. IMPRESSION: 1. 1 mm stone distal left ureter. Mild left hydronephrosis. 2. Mild diffuse distension of the colon suggestive of an ileus. Dictated and Authenticated by: Fernie Delacruz MD. Orderin Miles Lopez MD
--- NOTE | 2025-07-30 21:37 | W.PC.ACHO1 ---
Registration Status: REG ER Primary Language: Preferred Language: Mongolian ED Information & Data Chief Complaint Abd Prob 07/30/25 18:38 Other Complaint Urinary 07/30/25 18:12 Triage Note Persistent flank pain on L 07/30/25 18:12 side radiating to Left Lower Abd Quad. PT reports known kidney stone that the PT does not believe he has passed it. Report chills and fever at home. Medical / Surgical History (Last Reviewed 06/07/25 @ 16:34 by Simran Dominguez DNP) Cataract Tubular adenoma of colon (~04/2024) (Last Reviewed 06/07/25 @ 16:34 by Simran Dominguez DNP) History of cataract surgery History of colonoscopy with polypectomy (~04/2024) History of esophagogastroduodenoscopy (~04/2024) Most Recent Vital Signs Temperature 37.0 C 07/30/25 18:15 Pulse 100 H 07/30/25 18:15 Respiratory Rate 20 07/30/25 18:15 Blood Pressure 191/106 H 07/30/25 18:15 Blood Pressure Position Sitting 07/30/25 18:15 Pulse Oximetry 95 07/30/25 18:15 Oxygen Delivery Method Room Air 07/30/25 18:15 Oxygen Flow Rate 0 07/30/25 18:15 Allergies clindamycin Adverse Reaction (Verified 07/30/25 18:16) C.Diff PT. STATES IT GAVE C.DIFF IV IV Catheter Type [Right Saline Lock Antecubital] IV Catheter Gauge [Right 20 Antecubital] Diagnostics 07/30/25 07/30/25 Range/Units 18:51 18:22 WBC 11.19 H (4.4-10.8) 10^3/uL RBC 5.05 (4.36-5.78) 10^6/uL Hgb 14.5 (13.5-17.5) g/dL Hct 45.0 (40.0-50.0) % MCV 89 (80-95) fL MCH 28.7 (27.0-33.0) pg MCHC 32.2 (32.0-36.0) % RDW 13.6 (11.8-14.1) % Plt Count 178 (130-400) 10^3/uL MPV 9.6 (8.0-11.0) fL Immature Gran % 0.4 % Neutrophils % 85.5 % Lymphocytes % 6.1 % Monocytes % 7.7 % Eosinophils % 0.1 % Basophils % 0.2 % Nucleated RBC % 0.0 (0.0-0.3) % Absolute Neutrophils 9.57 H (1.2-6.7) 10^3/uL Absolute Lymphocytes 0.68 L (1.2-3.4) 10^3/uL Absolute Monocytes 0.86 H (0.1-0.8) 10^3/uL Absolute Eosinophils 0.01 (0.0-0.7) 10^3/uL Absolute Basophils 0.02 (0.0-0.2) 10^3/uL VBG Lactate 1.0 (<or=2.0) mmol/L Sodium 134 L (136-145) mmol/L Potassium 4.0 (3.5-5.1) mmol/L Chloride 99 (98-107) mmol/L Carbon Dioxide 26.9 (20.0-31.0) mmol/L Anion Gap 8 (3-11) mmol/L BUN 18 (9-23) mg/dL Creatinine 1.49 H (0.73-1.18) mg/dL Est GFR (CKD-EPI 2020) 46.27 (mL/min/1.73m2) Glucose 106 (74-106) mg/dL Calcium 8.6 (8.3-10.6) mg/dL Magnesium 2.0 (1.6-2.6) mg/dL Total Bilirubin 0.60 (0.2-1.2) mg/dL AST 36 H (<34) U/L ALT 22 (10-49) U/L Alkaline Phosphatase 73 (46-116) U/L Total Protein 7.0 (5.7-8.2) g/dL Albumin 4.2 (3.2-5.0) g/dL Lipase 26 (<53) U/L Procalcitonin 0.10 ng/mL Urine Color Dark Yellow (Yellow) Urine Clarity Sl Cloudy (Clear) Urine pH 5.5 (5-8) Ur Specific [place] 1.025 (1.005-1.025) Urine Protein 100 H (Neg-Trace) mg/dL Urine Ketones 15 H (Negative) mg/dL Urine Blood Large H (Negative) Urine Nitrite Negative (Negative) Urine Bilirubin Small H (Negative) Urine Urobilinogen 0.2 (Up to 0.2) mg/dL Ur Leukocyte Esterase Small H (Negative) Urine RBC >50 H (0-2) HPF Urine WBC >50 H (0-5) HPF Ur Epithelial Cells Rare (Negative) HPF Urine Crystals Moderate Amorphous (Negative) HPF Urine Bacteria Packed (Negative) HPF Urine Casts Negative (Negative) LPF Urine Mucus Negative (Negative) Ur Culture Indicated? Yes Urine Glucose Negative (Negative) mg/dL 07/30/25 19:27 Blood Culture - Pending Blood 07/30/25 18:51 Blood Culture - Pending Blood 07/30/25 18:22 Urine Culture - Pending Urine - Reflex from Ua Intake and Output - 24 Hour Total 07/30/25 18:08 thru 07/30/25 19:45 Intake Total 10 Balance 10 Weight 92.986 kg Intake: IV 10 Falls Risk Assessment History of Falls No History 07/30/25 18:15 Contributing Factors No Factors 07/30/25 18:15 Ambulatory Aids Independent 07/30/25 18:15 Tubes/Lines None 07/30/25 18:15 Gait Evaluation No gait disturbance 07/30/25 18:15 Cognition No cognitive impairment 07/30/25 18:15 Fall Total Score 0 07/30/25 18:15 Level of Risk Standard/Low Risk 07/30/25 18:15 Problems (Last Reviewed 06/07/25 @ 16:34 by Simran Dominguez DNP) Kidney stone (Chronic) Acute UTI (Acute) Attestation Statement: By documenting the first initial, last name, and credentials of the reporting nurse below, both parties acknowledge that all relevant information regarding the patient handoff has been communicated, and that all questions have been addressed to ensure continuity and safety of care. Additional Patient Information/Comments: Will ask provider to put order in for IV fluids. Report Received From: Dolores RUBIO
--- NOTE | 2025-07-30 21:40 | HPE_ITS ---
Date of service: 07/30/25 Time of Service: 21:40 Assessment and Plan Assessment and plan (1) Kidney stone: Status: Chronic Assessment and plan: continue with fluid Flomax and pain control. Strain urine. Patient states that he has had episodes of hypotension with Flomax so we will need to be aware. Continue with antibiotics. (2) UTI (urinary tract infection): Status: Acute Assessment and plan: Continue with Rocephin. Blood and urine cultures have been drawn. (3) HTN (hypertension): Status: Chronic Assessment and plan: Patient does have elevated blood pressure 182 but does not want any as needed medications. Concerned about the additive effect of Flomax and hydralazine. (4) Ileus: Status: Acute Assessment and plan: As patient had been taking some narcotics will add Relistor. DVT prophylaxis with Lovenox. 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 Patient was seen a few days ago and was diagnosed with a left sided renal calculi 1 to 2 mm. He was discharged on Flomax as well as pain meds. Today continue to have pain and associated nausea came back into the ED and evaluated treatment. While he was in the ED he was noted to have what appeared to be worsening UTI and repeat imaging did not show a stone had moved. In discussion with Dr. Aquino he did reach out to [facility] but did not recommend transfer. Dr. Aquino also reached out to Dr. Martines via was unfortunately as he was on-call. At that point we were called to admit the patient for overnight monitoring evaluation pain control IV fluids. Patient does endorse some nausea but no patient states he did have a stone approximately 30 years ago which was reviewed with lithotripsy. No allergies or intolerance full code PFSH All Active Problems (Updated 07/30/25 @ 21:48 by Riley Solo MD) Ileus (Acute) HTN (hypertension) (Chronic) UTI (urinary tract infection) (Acute) Kidney stone (Chronic) Acute UTI (Acute) Hematuria (Acute) Kidney stone on left side (Acute) Lower urinary tract symptoms (LUTS) (Acute) Skin cyst (Acute) Internal hemorrhage (Acute) Hiatal hernia (Chronic) Cobalamin deficiency (Acute) Anemia (Chronic) Hypoxemia (Acute) Generalized hyperhidrosis (Acute) Altered bowel function (Acute) Iron deficiency (Acute) Ventricular premature complex (Acute) Dyspnea (Acute) Disorder of pancreas (Acute) GERD without esophagitis (Acute) History of colon polyps (Acute) 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) BPH (benign prostatic hyperplasia) (Chronic) Cyst of pancreas (Acute) Iron deficiency anemia (Acute) Colorectal polyps (Acute) Encounter for hearing aid fitting (Acute) Encounter for colorectal cancer screening (Acute) Chronic diarrhea (Acute) History of exploratory laparotomy (Acute) 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 S/P colonoscopy (Acute ~01/20/19) 2006- normal H/O local excision of skin lesion (Acute) GERD (gastroesophageal reflux disease) (Chronic) Hypogonadism in male (Chronic) Sensorineural hearing loss of both ears (Chronic) Medical History Cataract Tubular adenoma of colon (~04/2024) Surgical History History of esophagogastroduodenoscopy (~04/2024) History of cataract surgery History of colonoscopy with polypectomy (~04/2024) Social History Smoking/Tobacco Use Status: Never Smoking risk assessment performed?: Yes Alcohol Intake: current Alcohol Intake frequency: holidays/special occasions only Drug use: Never Substance use type: does not use Housing: house Current gender identity: male Additional [facility] Med[facility] Allergies and Home Medications Allergies Allergy/AdvReac Type Severity Reaction Status Date / Time clindamycin AdvReac C.Diff Verified 07/30/25 18:16 Home Medications ?Medication ?Instructions ?Recorded ?Confirmed ?Type testosterone cypionate 200 mg/mL 200 mg IM Q2W 8 07/30/25 History intramuscular kit pantoprazole 40 mg tablet,delayed 40 mg PO BID 3 07/30/25 History release finasteride 5 mg tablet 5 mg PO DAILY 06/07/2507/30 History ondansetron 4 mg disintegrating 4 mg PO Q8H PRN PRN #1 0 tabs 07/27/25 07/30/25 Rx tablet oxycodone-acetaminophen 5 mg-325 1 tab PO .q4-6 hours PRN #5 tabs 07/27/25 07/30/25 Rx mg tablet hydrocodone 5 mg-acetaminophen 325 1 tab PO Q6H PRN pa in 07/30/25 07/30/25 History mg tablet Exam Narrative Exam Narrative: HEENT normocephalic atraumatic mucous membranes moist oropharynx clear nec neck no lymphadenopathy cardiovascular regular rate and rhythm no gallops lungs clear to auscultation bilaterally with good air exchange abdomen decreased bowel sounds Neuro nonfocal Results Labs 07/30/25 18:51 07/30/25 18:51 Labs: Laboratory Results - last 24 hr 07/30/25 07/30/25 18:22 18:51 WBC 11.19 H RBC 5.05 Hgb 14.5 Hct 45.0 MCV 89 MCH 28.7 MCHC 32.2 RDW 13.6 Plt Count 178 MPV 9.6 Immature Gran % 0.4 Neutrophils % 85.5 Lymphocytes % 6.1 Monocytes % 7.7 Eosinophils % 0.1 Basophils % 0.2 Nucleated RBC % 0.0 Absolute Neutrophils 9.57 H Absolute Lymphocytes 0.68 L Absolute Monocytes 0.86 H Absolute Eosinophils 0.01 Absolute Basophils 0.02 VBG Lactate 1.0 Sodium 134 L Potassium 4.0 Chloride 99 Carbon Dioxide 26.9 Anion Gap 8 BUN 18 Creatinine 1.49 H Est GFR (CKD-EPI 2020) 46.27 Glucose 106 Calcium 8.6 Magnesium 2.0 Total Bilirubin 0.60 AST 36 H ALT 22 Alkaline Phosphatase 73 Total Protein 7.0 Albumin 4.2 Lipase 26 Procalcitonin 0.10 Urine Color Dark Yellow Urine Clarity Sl Cloudy Urine pH 5.5 Ur Specific [place] 1.025 Urine Protein 100 H Urine Ketones 15 H Urine Blood Large H Urine Nitrite Negative Urine Bilirubin Small H Urine Urobilinogen 0.2 Ur Leukocyte Esterase Small H Urine RBC >50 H Urine WBC >50 H Ur Epithelial Cells Rare Urine Crystals Moderate Amorphous Urine Bacteria Packed Urine Casts Negative Urine Mucus Negative Ur Culture Indicated? Yes Urine Glucose Negative Last Vital Signs Temp 37.0 C 07/30/25 18:15 Pulse 100 H 07/30/25 18:15 Resp 20 07/30/25 18:15 BP 191/106 H 07/30/25 18:15 Pulse Ox 95 07/30/25 18:15 VTE Prohylaxis Risk Level: Moderate/High Risk Contraindications: None Prophylaxis: Patient anticoagulated and Pharmacologic Time Spent Time spent with Patient: 40-54 minutes Time was spent: preparing to see the patient(eg.review tests), obtaining and/or reviewing separately otained hiistory, ordering medications,tests, procedures, referring, communicating with other health insurance healthcare representative, indepentently interpreting results, counseling the patient and care coordination
[2025-07-30] MEDS: Tamsulosin 0.4 MG CAPCR PO (22:05)
[2025-07-30] MEDS: Pantoprazole 40 MG TABCR PO (23:36)
[2025-07-30] MEDS: Methylnaltrexone 12 MG/0.6 ML VIAL 8 MG SC (23:36)
[2025-07-30] MEDS: Zolpidem 5 MG TAB PO (23:37)
[2025-07-30] MEDS: Normal Saline Flush 10 ML SYR IVP (23:38)
[2025-07-31] MEDS: Normal Saline 1,000 ML 150 ML IV (00:01)
[2025-07-31] MEDS: Ketorolac 15 MG/ML VIAL IVP ×2 (04:29→21:04)
[2025-07-31] MEDS: Normal Saline 1,000 ML 200 ML IV (06:28)
[2025-07-31 06:41] LABS: Abs Immature Grans 0.01 10^3/uL (0.0-0.06); HCT 35.7 % (40.0-50.0); HGB 11.4 g/dL (13.5-17.5); Immature Grans % 0.1 %; MCH 28.7 pg (27.0-33.0); MCHC 31.9 % (32.0-36.0); MCV 90 fL (80-95); MPV 10.2 fL (8.0-11.0); Platelet Count 155 10^3/uL (130-400); RBC 3.97 10^6/uL (4.36-5.78); RDW 13.5 % (11.8-14.1); RDW-SD 44.7 fL; WBC 7.90 10^3/uL (4.4-10.8)
[2025-07-31 06:58] LABS: Uric Acid 3.9 mg/dL (3.7-9.2)
[2025-07-31 07:09] LABS: ALT 17 U/L (10-49); AST 27 U/L (<34); Albumin 3.2 g/dL (3.2-5.0); Alkaline Phosphatase 54 U/L (46-116); Anion Gap 6.8 mmol/L (3-11); BUN 18 mg/dL (9-23); Bilirubin, Total 0.50 mg/dL (0.2-1.2); CO2 26.2 mmol/L (20.0-31.0); Calcium 7.6 mg/dL (8.3-10.6); Chloride 103 mmol/L (98-107); Glucose 91 mg/dL (74-106); Potassium 4.0 mmol/L (3.5-5.1); Sodium 136 mmol/L (136-145); Total Protein 5.4 g/dL (5.7-8.2)
--- NOTE | 2025-07-31 07:44 | INITIAL_ITS ---
Date of service: 07/31/25 Time of Service: 14:57 Care Management Initial Assmt Initial Assessment Reason for Hospitalization: Renal Calculi Functional Status/Living Situation Patient Presentation: Fernie was sitting upright in a chair when CM met with him. He initially presented to the ED on 07/27 with left lower quadrant pain and returned on 07/30 with worsening left flank pain, at which time he was admitted. [place] [facility] [place] [place] and did not recommend transfer. Per report, the plan is for the patient to remain inpatient for pain management and IV fluids. Anticipated discharge is later today or tomorrow. Fernie has been ambulatory in the halls today and is hopeful that the stone will pass, providing symptom relief. He is independent at baseline and is not expected to require services upon discharge. CM will continue to follow. Town of Residence: [facility] Resides with: Spouse (Navya) Significant Other/Family: Local Natural Supports: Family Employment Status: Employed () Instrumental Activities of Daily Living (ADLs): Independent Medications Medication Management: No Issues/Barriers identified Advance Directives Advance Directives: Do you have an Advance Directive: N , 10:18 AD On File at [facility]: N 11/28/18, 10:18 Date Asked 07/30/25 Today, 07:44 AD Date Reviewed COLST On File at [facility] COLST Date Scanned Code Status Resuscitation Status Full Code Portal Pt does not currently have a portal and education provided: Yes Insurance Coverage/Financial Issues Insurance: BC/BS [facility] Advantage - [id number] Care Team Visit Care Team Role Provider Type Dell Machado MD [facility] STAFF PHYSICIAN Isabella Ahumada Primary Care Provider NON-[facility] STAFF PHYSICIAN John Aquino MD Emergency Provider [facility] STAFF PHYSICIAN Riley Solo MD Admit Provider [facility] STAFF PHYSICIAN Attending Provider Discharge Potential Discharge Needs: Consult Consult Services Needed: Other (Urology), PCP F/U Appt and Other (Urology F/U) Anticipated Barriers to Discharge: Medical Status Patient/Family Education Needs: Review discharge instructions, discuss Ask Me Three Transportation: Private vehicle Plan: Anticipate Fernie will be discharged home once medically ready with no new services. It is recommended he follow up with his community providers, urology, and discharge plan of care. He will transport home via private vehicle. CM will follow. Social Determinants of Health Screening Will the Patient Participate in the Screening?: Declined to provide PFSH All Active Problems (Updated 07/31/25 @ 10:22 by Dell Machado) Acute kidney injury (Acute) Ileus (Acute) HTN (hypertension) (Chronic) UTI (urinary tract infection) (Acute) Kidney stone (Chronic) Acute UTI (Acute) Hematuria (Acute) Kidney stone on left side (Acute) Lower urinary tract symptoms (LUTS) (Acute) Skin cyst (Acute) Internal hemorrhage (Acute) Hiatal hernia (Chronic) Cobalamin deficiency (Acute) Anemia (Chronic) Hypoxemia (Acute) Generalized hyperhidrosis (Acute) Altered bowel function (Acute) Iron deficiency (Acute) Ventricular premature complex (Acute) Dyspnea (Acute) Disorder of pancreas (Acute) GERD without esophagitis (Acute) History of colon polyps (Acute) 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) BPH (benign prostatic hyperplasia) (Chronic) Cyst of pancreas (Acute) Iron deficiency anemia (Acute) Colorectal polyps (Acute) Encounter for hearing aid fitting (Acute) Encounter for colorectal cancer screening (Acute) Chronic diarrhea (Acute) History of exploratory laparotomy (Acute) 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 S/P colonoscopy (Acute ~01/20/19) 2006- normal H/O local excision of skin lesion (Acute) GERD (gastroesophageal reflux disease) (Chronic) Hypogonadism in male (Chronic) Sensorineural hearing loss of both ears (Chronic) Medical History Cataract Tubular adenoma of colon (~04/2024) Surgical History History of esophagogastroduodenoscopy (~04/2024) History of cataract surgery History of colonoscopy with polypectomy (~04/2024) Social History Smoking/Tobacco Use Status: Never Smoking risk assessment performed?: Yes Alcohol Intake: current Alcohol Intake frequency: holidays/special occasions only Drug use: Never Substance use type: does not use Housing: house Current gender identity: male Additional Social history: [facility] Readmission Within the Past 30 Days Yes or No: No
[2025-07-31] MEDS: Pantoprazole 40 MG TABCR PO ×2 (07:54→16:39)
[2025-07-31 07:58] VITALS: BP 104/67; PULSE 60; RESP 16; TEMP 36.7; O2SAT 95
[2025-07-31 08:42] LABS: Lab Add On Test DONE
[2025-07-31] MEDS: Normal Saline Flush 10 ML SYR IVP ×3 (08:46→21:05)
[2025-07-31] MEDS: Finasteride 5 MG TAB PO (08:46)
[2025-07-31] MEDS: Polyethylene Glycol 3350 17 GM PACKET PO (08:56)
[2025-07-31] MEDS: Lactated Ringers 500 ML IV (08:58)
[2025-07-31] MEDS: Lactated Ringers 1,000 ML 200 ML IV ×2 (10:08→16:39)
--- NOTE | 2025-07-31 10:15 | W.PM.PROGNOT ---
Date of Service Date of service: 07/31/25 Time of Service: 10:15 Assessment and Plan Assessment and plan (1) Kidney stone: Status: Chronic Assessment and plan: Small 1mm but causing some degree of obstruction with hydronephrosis. continue with IVF and tamsulosin wiht higher dose as well as pain control. Strain urine. Reports possible h/o urate stone so will add uric acid to labs. (2) Acute kidney injury: Status: Acute Assessment and plan: In setting of some dehydration, NSAID use, and unilateral hydronephrosis. COntinue fluids, monitor. (3) Ileus: Status: Acute Assessment and plan: No BM overnight but abdomen not tender/distended today Encourage bowel regimen (4) UTI (urinary tract infection): Status: Acute Assessment and plan: Continue with Rocephin. Blood and urine cultures pending. Discharge Planning Discharge Planning: home when stable tolerating oral fluid/medication, later 07/31 vs 08/01 Subjective Subjective Patient reports: no new complaints and tolerating a regular diet; denies diarrhea, nausea, vomiting, shortness of breath or fever Interval history since last seen: Feels exhausted, hasn't slept for days, but feels a little better this morning. Was finally able to eat. He doesn't have pain now. He is urinating dark urine, feels like he could still use more fluids. Exam Narrative Exam Narrative: GEN: alert and oriented, NAD Lungs: CTAb, nl effot CV: RRR no m/g/r MSK: No CVAT ABD: +BS, soft, NT/ND Ext: no c/c/edema, not tender, warm Objective Last Vital Signs Temp 36.7 C 07/31/25 07:58 Pulse 60 07/31/25 07:58 Resp 16 07/31/25 07:58 BP 104/67 07/31/25 07:58 Pulse Ox 95 07/31/25 07:58 Laboratory Results - last 24 hr 07/30/25 07/30/25 07/31/25 18:22 18:51 06:06 WBC 11.19 H 7.90 RBC 5.05 3.97 L Hgb 14.5 11.4 L D Hct 45.0 35.7 L MCV 89 90 MCH 28.7 28.7 MCHC 32.2 31.9 L RDW 13.6 13.5 Plt Count 178 155 MPV 9.6 10.2 Immature Gran % 0.4 0.1 Neutrophils % 85.5 78.7 Lymphocytes % 6.1 8.1 Monocytes % 7.7 12.4 Eosinophils % 0.1 0.4 Basophils % 0.2 0.3 Nucleated RBC % 0.0 0.0 Absolute Neutrophils 9.57 H 6.22 Absolute Lymphocytes 0.68 L 0.64 L Absolute Monocytes 0.86 H 0.98 H Absolute Eosinophils 0.01 0.03 Absolute Basophils 0.02 0.02 VBG Lactate 1.0 Sodium 134 L 136 Potassium 4.0 4.0 Chloride 99 103 Carbon Dioxide 26.9 26.2 Anion Gap 8 6.8 BUN 18 18 Creatinine 1.49 H 1.50 H Est GFR (CKD-EPI 2020) 46.27 45.91 Glucose 106 91 Uric Acid 3.9 Calcium 8.6 7.6 L Magnesium 2.0 Total Bilirubin 0.60 0.50 AST 36 H 27 ALT 22 17 Alkaline Phosphatase 73 54 Total Protein 7.0 5.4 L Albumin 4.2 3.2 Lipase 26 Procalcitonin 0.10 Urine Color Dark Yellow Urine Clarity Sl Cloudy Urine pH 5.5 Ur Specific [place] 1.025 Urine Protein 100 H Urine Ketones 15 H Urine Blood Large H Urine Nitrite Negative Urine Bilirubin Small H Urine Urobilinogen 0.2 Ur Leukocyte Esterase Small H Urine RBC >50 H Urine WBC >50 H Ur Epithelial Cells Rare Urine Crystals Moderate Amorphous Urine Bacteria Packed Urine Casts Negative Urine Mucus Negative Ur Culture Indicated? Yes Urine Glucose Negative Add-On Test Request DONE VTE Prohylaxis Risk Level: Moderate/High Risk Contraindications: None Prophylaxis: Pharmacologic Time Spent with Patient Time Spent with Patient: 35-49 minutes Time was spent: preparing to see the patient(eg.review tests), obtaining and/or reviewing separately otained hiistory, ordering medications,tests, procedures, referring, communicating with other health care information associate, indepentently interpreting results, counseling the patient and care coordination
[2025-07-31] MEDS: Tamsulosin 0.4 MG CAPCR PO ×2 (11:00→19:28)
[2025-07-31] MEDS: cefTRIAXone 2 GM/50 ML BAG IVPB (18:07)
[2025-07-31] MEDS: Bisacodyl 5 MG TABEC PO (18:51)
[2025-07-31 19:18] VITALS: BP 123/76; PULSE 56; RESP 16; TEMP 36.5; O2SAT 96
[2025-07-31] MEDS: Zolpidem 5 MG TAB PO (19:28)
[2025-08-01] MEDS: Zolpidem 5 MG TAB PO (00:53)
[2025-08-01 00:57] VITALS: BP 118/67; PULSE 56; RESP 16; TEMP 37.1; O2SAT 95
[2025-08-01 06:52] LABS: Anion Gap 9.2 mmol/L (3-11); BUN 17 mg/dL (9-23); CO2 25.8 mmol/L (20.0-31.0); Calcium 7.9 mg/dL (8.3-10.6); Chloride 104 mmol/L (98-107); Glucose 84 mg/dL (74-106); Potassium 4.2 mmol/L (3.5-5.1); Sodium 139 mmol/L (136-145)
[2025-08-01 07:14] VITALS: BP 125/79; PULSE 52; RESP 18; TEMP 36.4; O2SAT 96
[2025-08-01] MEDS: Pantoprazole 40 MG TABCR PO (07:47)
[2025-08-01] MEDS: Tamsulosin 0.4 MG CAPCR PO ×2 (07:47→20:45)
[2025-08-01] MEDS: Cyanocobalamin 500 MCG TAB 1000 MCG PO (07:47)
[2025-08-01] MEDS: Finasteride 5 MG TAB PO (07:47)
[2025-08-01] MEDS: Normal Saline Flush 10 ML SYR IVP (07:56)
[2025-08-01] MEDS: Bisacodyl 10 MG SUPP PR (10:22)
[2025-08-01] MEDS: Magnesium Citrate 300 ML BTL PO (10:22)
[2025-08-01 14:23] VITALS: PULSE 52; RESP 18; TEMP 37; O2SAT 98
--- NOTE | 2025-08-01 15:03 | W.PM.PROGNOT ---
Date of Service Date of service: 08/01/25 Time of Service: 15:03 Assessment and Plan Assessment and plan (1) Kidney stone: Status: Chronic Assessment and plan: -Small 1mm, causing some degree of obstruction with hydronephrosis. and ongoing intermentent pain -continue with IVF and tamsulosin -strain urine -will consult Urology as patient wishes to discuss with them prior to DC (2) Acute kidney injury: Status: Acute Assessment and plan: -likely secondary to obstructive uropathy as noted above (3) Ileus: Status: Acute Assessment and plan: -reported as no BM for 5 days -given PO meds as well as suppository which results in some small hard BMs -patient also states he has slow bowels and has not been eating much (4) UTI (urinary tract infection): Status: Acute Assessment and plan: -DC CTX, transition to PO cefpodoxime Subjective Subjective Interval history since last seen: Patient states that he is feeling a little better today, though he was very anxious and tearful, though he states this is likely from not getting sleep. He understands the plan to monitor him overnight to continue to work on his bowel movements and for him to discuss outpatient care with urology in the morning. Exam Narrative Exam Narrative: Anxious, tearful, but otherwise well-appearing gentleman sitting up in the chair no acute distress, ANO x 4, heart regular rhythm, lungs good auscultation bilaterally, abdomen soft, nontender, nondistended Objective Last Vital Signs Temp 98.6 F 08/01/25 14:23 Pulse 52 L 08/01/25 14:23 Resp 18 08/01/25 14:23 BP 125/79 08/01/25 07:14 Pulse Ox 98 08/01/25 14:23 Laboratory Results - last 24 hr 08/01/25 05:48 Sodium 139 Potassium 4.2 Chloride 104 Carbon Dioxide 25.8 Anion Gap 9.2 BUN 17 Creatinine 1.49 H Est GFR (CKD-EPI 2020) 46.27 Glucose 84 Calcium 7.9 L VTE Prohylaxis Risk Level: Moderate/High Risk Contraindications: None Prophylaxis: Pharmacologic Time Spent with Patient Time Spent with Patient: >50 minutes Time was spent: preparing to see the patient(eg.review tests), obtaining and/or reviewing separately otained hiistory, ordering medications,tests, procedures, referring, communicating with other health lawn care specialist, indepentently interpreting results, counseling the patient and care coordination
[2025-08-01] MEDS: Aspirin E.C. 325 MG TABEC 650 MG PO (17:04)
[2025-08-01 20:00] VITALS: BP 122/75; PULSE 69; RESP 14; TEMP 36.1; O2SAT 94
[2025-08-01] MEDS: LORazepam 1 MG TAB PO (20:45)
[2025-08-01] MEDS: Cefpodoxime 200 MG TAB PO (20:45)
[2025-08-01] MEDS: Ketorolac 30 MG/ML VIAL IM (21:18)
[2025-08-02] MEDS: Mylanta Suspension 30 ML CUP PO (03:58)
[2025-08-02] MEDS: Pantoprazole 40 MG TABCR PO (03:59)
[2025-08-02] MEDS: Bisacodyl 10 MG SUPP PR (05:56)
[2025-08-02 07:41] LABS: Anion Gap 6.7 mmol/L (3-11); BUN 17 mg/dL (9-23); CO2 28.3 mmol/L (20.0-31.0); Calcium 8.4 mg/dL (8.3-10.6); Chloride 103 mmol/L (98-107); Glucose 84 mg/dL (74-106); Potassium 4.5 mmol/L (3.5-5.1); Sodium 138 mmol/L (136-145)
[2025-08-02 08:00] VITALS: BP 147/82; PULSE 54; RESP 16; TEMP 36.4; O2SAT 96
[2025-08-02] MEDS: Finasteride 5 MG TAB PO (08:18)
[2025-08-02] MEDS: Cyanocobalamin 500 MCG TAB 1000 MCG PO (08:18)
--- NOTE | 2025-08-02 09:04 | PDOC.CMDIS ---
Date of service: 08/02/25 Time of Service: 09:04 LACE Index Scoring Tool Questions: Length of Stay (in days): 3 Was the patient admitted via the E.D.?: Yes E.D. Visits: 2 Answers: Total Score: 8 Risk of Readmission: Low Risk Care Management Discharge Plan Reason for Hospitalization: kidney stone Discharge Plan: Fernie will be discharged home with no new services. He will follow up with Urology and his PCP and transport with family. Patient/Family Education Needs: Review discharge instructions, limitations, follow up plan and discuss Ask Me Three.
[2025-08-02] MEDS: Tamsulosin 0.4 MG CAPCR 0.8 MG PO (09:40)
--- NOTE | 2025-08-02 14:37 | UCONE_ITS ---
Date of service: 08/02/25 Time of Service: 14:37 Assessment and Plan Assessment and plan (1) Kidney stone on left side: Status: Acute Assessment and plan: We discussed the absolute indications for surgical treatment of ureteral stones. He denies any have any indication of sepsis. His right kidney appears normal. Medical management is certainly a reasonable option for him. Knowing that his previous stone was radiolucent, there is a high likelihood that he had a uric acid stone. His admission urine pH was 5.5. Alkalinizing the urine with increasing citric acid intake may dissolve the uric acid stone. As long as he can tolerate oral medications, we can give him up to another 3 weeks to pass his stone. If his symptoms are not tolerable with the oral medications, we can add him onto the OR schedule for cystoscopy, retrograde pyelogram, ureteroscopy and stone manipulation. The patient would like to go home and trial medical management. I will send him home with a prescription for tramadol to use for breakthrough pain. I have asked him to give my office a call tomorrow to let us know how he is making out. If he is not tolerating outpatient therapy, perhaps we can add him onto the schedule for ureteroscopy. History of Present Illness History of Present Illness Chief Complaint: Left ureteral stone Narrative: This is a 74-year-old gentleman who has had a kidney stone in the past. He recalls having had gross painless hematuria about 30 years ago. He believes that a radiolucent stone was identified, but he is not certain about any chemical analysis for the stone. He was treated surgically and had no subsequent problems. He presented to the emergency department last week with left flank pain that radiated to the penis area. He was found to have left hydronephrosis and a very small left distal ureteral stone. He was discharged from the emergency department but returned a few days later when he developed a fever. His urinalysis was concerning for an infection. He was started on IV antibiotics and hospitalized for hydration and analgesia. His urine and blood cultures showed no bacterial growth. He continues to have intermittent discomfort and nausea. He has not passed his stone as far as he is aware. He is hoping to be discharged with medical management but wants to meet to discuss his options. He has no known history of gout or hyperparathyroidism. Review of Systems Narrative: He has not been febrile since his admission [facility] All Active Problems (Updated 08/02/25 @ 14:30 by Jace Charles MD) Acute kidney injury (Acute) Ileus (Acute) HTN (hypertension) (Chronic) UTI (urinary tract infection) (Acute) Kidney stone (Chronic) Acute UTI (Acute) Hematuria (Acute) Kidney stone on left side (Acute) Lower urinary tract symptoms (LUTS) (Acute) Skin cyst (Acute) Internal hemorrhage (Acute) Hiatal hernia (Chronic) Cobalamin deficiency (Acute) Anemia (Chronic) Hypoxemia (Acute) Generalized hyperhidrosis (Acute) Altered bowel function (Acute) Iron deficiency (Acute) Ventricular premature complex (Acute) Dyspnea (Acute) Disorder of pancreas (Acute) GERD without esophagitis (Acute) History of colon polyps (Acute) 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) BPH (benign prostatic hyperplasia) (Chronic) Cyst of pancreas (Acute) Iron deficiency anemia (Acute) Colorectal polyps (Acute) Encounter for hearing aid fitting (Acute) Encounter for colorectal cancer screening (Acute) Chronic diarrhea (Acute) History of exploratory laparotomy (Acute) 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 S/P colonoscopy (Acute ~01/20/19) 2006- normal H/O local excision of skin lesion (Acute) GERD (gastroesophageal reflux disease) (Chronic) Hypogonadism in male (Chronic) Sensorineural hearing loss of both ears (Chronic) Medical History Cataract Tubular adenoma of colon (~04/2024) Surgical History History of esophagogastroduodenoscopy (~04/2024) History of cataract surgery History of colonoscopy with polypectomy (~04/2024) Social History Smoking/Tobacco Use Status: Never Smoking risk assessment performed?: Yes Alcohol Intake: current Alcohol Intake frequency: holidays/special occasions only Drug use: Never Substance use type: does not use Housing: house Current gender identity: male Additional Social history: UTAP Exam Narrative Exam Narrative: He does not appear septic or toxic His vital signs are documented elsewhere His chest wall motion is normal. He is not short of breath at rest. He is awake and alert I reviewed the CT scan PACS system. There is a very small distal left ureteral stone Results Last Vital Signs Temp 36.4 C L 08/02/25 08:00 Pulse 54 L 08/02/25 08:00 Resp 16 08/02/25 08:00 BP 147/82 H 08/02/25 08:00 Pulse Ox 96 08/02/25 08:00 Labs 07/31/25 06:06 08/02/25 07:08 Labs: Laboratory Results - last 24 hr 08/02/25 07:08 Sodium 138 Potassium 4.5 Chloride 103 Carbon Dioxide 28.3 Anion Gap 6.7 BUN 17 Creatinine 1.62 H Est GFR (CKD-EPI 2020) 42.01 Glucose 84 Calcium 8.4
--- NOTE | 2025-08-02 14:57 | W.PM.DS.N ---
Date of service: 08/02/25 Time of Service: 14:57 DS: Diagnosis Discharge Diagnosis (1) Kidney stone on left side: Status: Acute Discharge Plan Disposition Patient Disposition: Home Condition: Good Discharge Details Reason For Visit: Renal Calculi Admit Date/Time: 07/30/25 21:51 Admit Provider: Riley Solo Attending Provider: Riley Solo Primary Care Provider: Isabella Ahumada Hospital Course Hospital Course: Patient initially presenting after having 3 days of left lower quadrant pain radiating to his flank that was found to be a 1 to 2 mm left-sided renal calculi that did not respond to outpatient Flomax as the patient had associated nausea. He was also thought to have had urinary tract infection and was started on ceftriaxone however urine cultures were negative. Patient's pain did improve during hospitalization but did not completely resolve. He was seen by Dr. Martines of urology who agreed that patient could be safely discharged home and can follow-up with urology as an outpatient for further management if the stone does not spontaneously pass. Home Meds and New Rx's Prescriptions: New tamsulosin 0.4 mg Capsule 0.8 mg PO BID Qty: 90 0RF tramadol 50 mg tablet 50 mg PO Q6H MDD 4 PRN (Reason: pain) Qty: 20 0RF Rx Instructions: may take with NSAIDS and aspirin Continued finasteride 5 mg tablet 5 mg PO DAILY pantoprazole 40 mg tablet,delayed release (DR/EC) 40 mg PO BID oxycodone-acetaminophen 5-325 mg Tablet 1 tab PO .q4-6 hours PRN Qty: 5 0RF ondansetron 4 mg Tablet,Disintegrating 4 mg PO Q8H PRN PRNQty: 10 0RF cyanocobalamin (vitamin B-12) 1,000 mcg capsule 1,000 mcg PO DAILY testosterone cypionate 200 mg/mL Kit 200 mg IM Q2W Discontinued hydrocodone-acetaminophen 5-325 mg tablet 1 tab PO Q6H PRN (Reason: pain) Patient Comments: Not taken as of yet Discharge Instructions Stand Alone Forms: Portal Information, Nursing Discharge Form Referrals: Isabella Ahumada [Primary Care Provider, Medicine] Referral Note: Your pcp will call you to schedule your follow up, if you haven't heard from them please reach out Activity:: Activity as Tolerated Equipment/Supplies:: No Equipment Needed Diet:: As Tolerated Discharge Orders Discharge Orders: Discharge Order (Routine); Ordered 08/02/25 Ordered By: Jace Charles DS: Summary Time Spent with Patient providing and/or coordinating discharge services: Greater than 30 minutes Status at Discharge Functional status at discharge: independent ambulation Overall status at discharge: patient is back to baseline Mental Status: mental status grossly normal Speech and Movement: speech and movement normal Mood: congruent mood Affect: normal affect Exam Narrative Exam Narrative: Well-appearing gentleman sitting up in the chair no acute distress, ANO x 4, heart regular rhythm, lungs good auscultation bilaterally, abdomen soft, nontender, nondistended Psych Mental Status: mental status grossly normal Speech and Movement: speech and movement normal Mood: congruent mood Affect: normal affect DS: Data Vitals/I&O Vitals and I&O: Vital Signs Temperature 97.5 F L 08/02/25 08:00 Temperature Source Temporal Artery Scan 08/02/25 08:00 Pulse 54 L 08/02/25 08:00 Pulse Rhythm Regular 07/30/25 22:45 Respiratory Rate 16 08/02/25 08:00 Respiratory Effort Normal 07/30/25 22:45 Respiratory Depth Normal 07/30/25 22:45 Respiratory Pattern Normal 07/30/25 22:45 Blood Pressure 147/82 H 08/02/25 08:00 Blood Pressure Mean 103 08/02/25 08:00 Blood Pressure Position Sitting 07/30/25 18:15 Pulse Oximetry 96 08/02/25 08:00 Oxygen Delivery Method Room Air 08/02/25 08:00 Oxygen Flow Rate 0 08/02/25 08:00 Pain Level 4 08/01/25 21:18 Comment VS checked in reaction to pT stating feeling chills/ mild jaw chattering 08/01/25 14:23 Intake & Output 08/01/25 08/02/25 08/02/25 17:59 05:59 17:59 Intake Total 360 / 360 480 / 480 Output Total 200 / 200 Balance 160 / 160 480 / 480 Weight 220 lb 14.451 oz Intake: Oral 360 / 360 480 / 480 Output: Urine 200 / 200 Other: Urine Color Yellow Comment pT states voiding with BM's (uncollected/ unstrained) Pt voids independently, urine not visualized pT uses the bathroom independently. Data Completed and Pending Pending Labs at Discharge: 07/30/25 07/30/25 07/31/25 18:22 18:51 06:06 WBC 11.19 H 7.90 RBC 5.05 3.97 L Hgb 14.5 11.4 L D Hct 45.0 35.7 L MCV 89 90 MCH 28.7 28.7 MCHC 32.2 31.9 L RDW 13.6 13.5 Plt Count 178 155 MPV 9.6 10.2 Immature Gran % 0.4 0.1 Neutrophils % 85.5 78.7 Lymphocytes % 6.1 8.1 Monocytes % 7.7 12.4 Eosinophils % 0.1 0.4 Basophils % 0.2 0.3 Nucleated RBC % 0.0 0.0 Absolute Neutrophils 9.57 H 6.22 Absolute Lymphocytes 0.68 L 0.64 L Absolute Monocytes 0.86 H 0.98 H Absolute Eosinophils 0.01 0.03 Absolute Basophils 0.02 0.02 VBG Lactate 1.0 Sodium 134 L 136 Potassium 4.0 4.0 Chloride 99 103 Carbon Dioxide 26.9 26.2 Anion Gap 8 6.8 BUN 18 18 Creatinine 1.49 H 1.50 H Est GFR (CKD-EPI 2020) 46.27 45.91 Glucose 106 91 Uric Acid 3.9 Calcium 8.6 7.6 L Magnesium 2.0 Total Bilirubin 0.60 0.50 AST 36 H 27 ALT 22 17 Alkaline Phosphatase 73 54 Total Protein 7.0 5.4 L Albumin 4.2 3.2 Lipase 26 Procalcitonin 0.10 Urine Color Dark Yellow Urine Clarity Sl Cloudy Urine pH 5.5 Ur Specific Majestic 1.025 Urine Protein 100 H Urine Ketones 15 H Urine Blood Large H Urine Nitrite Negative Urine Bilirubin Small H Urine Urobilinogen 0.2 Ur Leukocyte Esterase Small H Urine RBC >50 H Urine WBC >50 H Ur Epithelial Cells Rare Urine Crystals Moderate Amorphous Urine Bacteria Packed Urine Casts Negative Urine Mucus Negative Ur Culture Indicated? Yes Urine Glucose Negative Add-On Test Request DONE 08/01/25 08/02/25 05:48 07:08 WBC RBC Hgb Hct MCV MCH MCHC RDW Plt Count MPV Immature Gran % Neutrophils % Lymphocytes % Monocytes % Eosinophils % Basophils % Nucleated RBC % Absolute Neutrophils Absolute Lymphocytes Absolute Monocytes Absolute Eosinophils Absolute Basophils VBG Lactate Sodium 139 138 Potassium 4.2 4.5 Chloride 104 103 Carbon Dioxide 25.8 28.3 Anion Gap 9.2 6.7 BUN 17 17 Creatinine 1.49 H 1.62 H Est GFR (CKD-EPI 2020) 46.27 42.01 Glucose 84 84 Uric Acid Calcium 7.9 L 8.4 Magnesium Total Bilirubin AST ALT Alkaline Phosphatase Total Protein Albumin Lipase Procalcitonin Urine Color Urine Clarity Urine pH Ur Specific Majestic Urine Protein Urine Ketones Urine Blood Urine Nitrite Urine Bilirubin Urine Urobilinogen Ur Leukocyte Esterase Urine RBC Urine WBC Ur Epithelial Cells Urine Crystals Urine Bacteria Urine Casts Urine Mucus Ur Culture Indicated? Urine Glucose Add-On Test Request Preliminary micro results at discharge 07/30/25 19:27 Blood Blood Culture - Preliminary NO GROWTH 48 HOURS 07/30/25 18:51 Blood Blood Culture - Preliminary NO GROWTH 48 HOURS PFSH All Active Problems (Updated 08/02/25 @ 14:30 by Jace Charles MD) Acute kidney injury (Acute) Ileus (Acute) HTN (hypertension) (Chronic) UTI (urinary tract infection) (Acute) Kidney stone (Chronic) Acute UTI (Acute) Hematuria (Acute) Kidney stone on left side (Acute) Lower urinary tract symptoms (LUTS) (Acute) Skin cyst (Acute) Internal hemorrhage (Acute) Hiatal hernia (Chronic) Cobalamin deficiency (Acute) Anemia (Chronic) Hypoxemia (Acute) Generalized hyperhidrosis (Acute) Altered bowel function (Acute) Iron deficiency (Acute) Ventricular premature complex (Acute) Dyspnea (Acute) Disorder of pancreas (Acute) GERD without esophagitis (Acute) History of colon polyps (Acute) 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) BPH (benign prostatic hyperplasia) (Chronic) Cyst of pancreas (Acute) Iron deficiency anemia (Acute) Colorectal polyps (Acute) Encounter for hearing aid fitting (Acute) Encounter for colorectal cancer screening (Acute) Chronic diarrhea (Acute) History of exploratory laparotomy (Acute) 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 S/P colonoscopy (Acute ~01/20/19) 2005- normal H/O local excision of skin lesion (Acute) GERD (gastroesophageal reflux disease) (Chronic) Hypogonadism in male (Chronic) Sensorineural hearing loss of both ears (Chronic) Medical History Cataract Tubular adenoma of colon (~04/2024) Surgical History History of esophagogastroduodenoscopy (~04/2024) History of cataract surgery History of colonoscopy with polypectomy (~04/2024) Social History Smoking/Tobacco Use Status: Never Smoking risk assessment performed?: Yes Alcohol Intake: current Alcohol Intake frequency: holidays/special occasions only Drug use: Never Substance use type: does not use Housing: house Current gender identity: male Additional Social history: UTAP Time Spent with Patient Time Spent with Patient: <45 minutes Time was spent: preparing to see the patient(eg.review tests), obtaining and/or reviewing separately otained hiistory, ordering medications,tests, procedures, referring, communicating with other health critical care nurse specialist, indepentently interpreting results, counseling the patient and care coordination
== END 2025-08-02 15:20 | disposition home or self-care (01) ==
LOC: ER 21:13 → MS 07-31 07:14
PROVIDERS: Family Medicine; Admitting Provider Hospitalist; Emergency Provider Emergency Medicine; PCP Family Medicine; Responsible Provider Family Medicine; Visit Provider Hospitalist
DX: N17.9 Acute kidney failure, unspecified (principal); N13.6 Pyonephrosis; I10 Essential (primary) hypertension; K56.7 Ileus, unspecified; Z87.442 Personal history of urinary calculi; K44.9 Diaphragmatic hernia without obstruction or gangrene; E53.8 Deficiency of other specified B group vitamins; N40.0 Benign prostatic hyperplasia without lower urinary tract symptoms; D50.9 Iron deficiency anemia, unspecified
CPT/HCPCS: 00123; 36415; 80048; 80053; 83690; 84145; 87040; 96365; 96366; 96375; 99222; 99285; 74176; 81003; 81015; 83605; 83735; 84550; 85025; 87086; 99232; 99233; 99238; G0378; J0696; J1885; J2212

== ENCOUNTER → 2025-08-24 09:54 | Outpatient (BNVA) | payer MEDICARE, SELFPAY | PROVIDERS: PCP Family Medicine; Referring Provider Family Medicine; Visit Provider Urology | DX: N20.0 Calculus of kidney (principal); N17.9 Acute kidney failure, unspecified | CPT/HCPCS: 76775 ==